=== PATIENT | female | born 1940 | race Caucasian/White ===

== ENCOUNTER 2017-04-22 11:13 | Inpatient (IN) ==
[2017-04-22] MEDS ORDERED: NS 1,000 ML IV ONE ×2 (12:01→12:41)
[2017-04-22] MEDS ORDERED: DUONEB (A & A) INH ONE (12:04)
--- NOTE | 2017-04-22 12:05 | Diag Imaging Result Doc PS360 ---
EXAM: CHEST-PORTABLE HISTORY: cough/recent pneumonia TECHNIQUE: AP portable upright at 1144 COMMENT: The inspiration is much better than on 08/05/2015. There is no evidence of acute cardiac or pulmonary disease. There are some calcifications in the left upper lobe and hilum consistent with granulomatous changes. IMPRESSION: No acute disease. Electronically signed by Anthony Contreras 04/22/2017 12:03 PM
[2017-04-22 12:08] LABS: BASO% 0.4 % (0.0-0.8); EOS# 0.03 X1000 (0.0-0.7); EOS% 0.2 % (0.0-10.0); HEMATOCRIT 29.1 % (37.0-47.0); HEMOGLOBIN 9.4 g/dL (12.0-16.0); IMM GRAN# 0.27 X1000 (0.0-0.04); IMM GRAN% 1.7 % (0.0-0.5); LYMPH# 1.81 X1000 (1.2-3.4); LYMPH% 11.2 % (20.5-51.1); MANUAL DIFF NEEDED? NO; MCH 31.6 PG (27-31); MCHC 32.3 g/dL (33-37); MONO# 1.46 X1000 (0.11-0.59); MONO% 9.1 % (1.7-9.3); MPV 11.7 FL (7.4-10.4); NEUT% 77.4 % (42.2-75.2); PLT 123 X1000 (130-400); RBC 2.97 XMIL (4.2-5.4)
[2017-04-22 12:18] LABS: INR 1.15; PROTIME 12.2 Seconds (9.2-11.7); PTT 31.5 Seconds (22.0-36.0)
[2017-04-22 12:29] LABS: ALBUMIN 3.9 g/dL (3.5-5.0); POTASSIUM 5.1 mmol/L (3.5-5.1); TOTAL BILIRUBIN 0.31 mg/dL (0.20-1.00); TOTAL PROTEIN 7.2 g/dL (6.3-8.3)
[2017-04-22] MEDS ORDERED: LEVAQUIN 750 MG/D5W 750 MG/150 ML IVPB IV ONE (12:39)
[2017-04-22 12:50] LABS: CALCIUM 7.1 mg/dL (8.8-10.2); CK-MB 6.41 ng/mL (0.0-5.0)
--- NOTE | 2017-04-22 13:09 | PROVIDER DOCUMENTATION ---
This chart was entered by Juan Alegria Scribe, acting as scribe for Mamie Lucio MD. HPI-General Adult - General Chief Complaint: Shortness of Breath Stated Complaint: pneumonia sx worsening Time Seen by Provider: 04/22/17 11:46 Source: patient, family Allergies/Adverse Reactions: Patient Allergies Allergy/AdvReac Type Severity Reaction Status Date / Time indomethacin [From Indocin] Allergy Severe NAUSEA/VOMI Verified 04/22/17 12:01 TING indomethacin sodium * Allergy Severe NAUSEA/VOMI Verified 04/22/17 12:01 [From Indocin] TING Home Medications: Home Medication List Medication Instructions Recorded Confirmed Last Taken Type Allopurinol 300 mg PO DAILY 06/25/15 04/22/17 04/22/17 History Ferrous Sulfate 325 mg PO DAILY 06/25/15 04/22/17 04/22/17 History Furosemide [Lasix] 40 mg PO DAILY 06/25/15 04/22/17 04/22/17 History Levothyroxine [Synthroid] 100 microgm PO DAILY 06/25/15 04/22/17 04/22/17 History Lovastatin 40 mg PO DAILY 06/25/15 04/22/17 04/22/17 History Omeprazole [Prilosec] 40 mg PO DAILY 06/25/15 04/22/17 04/22/17 History Buspirone [Buspar] 10 mg PO DAILY 04/22/17 04/22/17 04/22/17 History Iron Fum,Ps/FA/Vit B with C #9 1 each PO DAILY 04/22/17 04/22/17 04/22/17 History [Folivane-Plus Capsule] Levofloxacin [Levofloxacin] 250 mg PO BID 04/22/17 04/22/17 04/22/17 History Lisinopril [Lisinopril] 40 mg PO DAILY 04/22/17 04/22/17 04/22/17 History Megestrol Acetate 40 mg PO DAILY 04/22/17 04/22/17 04/22/17 History Potassium Chloride E.r. [Klor-Con] 10 meq PO DAILY 04/22/17 04/22/17 04/22/17 History Ropinirole [Requip] 0.5 mg PO DAILY 04/22/17 04/22/17 04/22/17 History Sitagliptin [Januvia] 100 mg PO DAILY 04/22/17 04/22/17 04/22/17 History Terazosin HCl 1 mg PO DAILY 04/22/17 04/22/17 04/22/17 History - History of Present Illness -Gen Adult Nature of Presenting Problems: 76 yo F presents to the ER with complaint of SOB and hypoxia. PT was recently dx with pneumonia and states she is not getting any better. PT has a productive cough. Associated Symptoms: reports: cough, shortness of breath Review of Systems - Adult - REVIEW OF SYSTEMS - ADULT Constitutional: denies: chills, fever Cardiovascular: denies: chest pain, palpitations Respiratory: reports: see HPI, cough, shortness of breath Gastrointestinal: denies: abdominal pain, nausea, vomiting All Other Systems: Reviewed and Negative Past History - Adult - PAST MEDICAL HISTORY-ADULT Review of Records: reports: Old Records Reviewed, Nursing Assessment Review, Medications Reviewed, Social history reviewed & non-contributory. Major Childhood Illnesses: reports: denies history Cardiovascular: reports: HTN, hyperlipidemia Respiratory: reports: denies history Gastrointestinal: reports: denies history Obstetrical/Gynecological: reports: denies history Genitourinary: reports: denies history Musculoskeletal: reports: denies history Neurological: reports: denies history Endocrine/Immune: reports: Diabetes Other Conditions: reports: denies history - PRIOR SURGERIES/PROCEDURES Surgical/Procedure History: reports: hysterectomy, appendectomy, cholecystectomy - IMMUNIZATION STATUS Childhood Immunizations: See Nurse Assessment Flu Vaccine: See Nurse Assessment Physical Exam-General - PHYSICAL EXAM-ADULT Initial Vital Signs Reviewed: Yes - CONSTITUTIONAL General Appearance: alert, moderate distress - RESPIRATORY Respiratory: chest non-tender, no accessory muscle use, wheezing - CARDIOVASCULAR Cardiovascular: normal peripheral pulses, tachycardia - GASTROINTESTINAL (ABDOMEN) Abdominal Exam: normal bowel sounds, soft - SKIN Integumentary: normal color, normal turgor, warm/dry Progress - PLAN OF CARE/RESULTS Progress/Plan/Lab Results: Vital Signs - 8 hr 04/22/17 11:18 Temperature 98.3 F Pulse Rate 157 H Respiratory Rate 32 H Blood Pressure 144/75 O2 Sat by Pulse Oximetry 100 Orders Category Date Time Status Cardiac Monitoring DIRECTED Care 04/22/17 11:25 Active IV Insertion ORDERED Care 04/22/17 11:25 Completed Notify MD of + Sepsis Screen NOW Care 04/22/17 11:25 Active CHEST-PORTABLE [RAD] Stat Exams 04/22/17 11:25 Taken BLOOD CULTURE [BLDCUL] Stat Lab 04/22/17 11:49 Ordered CBC WITH DIFF [HEME] Stat Lab 04/22/17 11:49 Ordered CK PROFILE [SP CHEM] Stat Lab 04/22/17 11:49 Ordered COMPREHENSIVE METABOLIC PANEL [CHEM] Stat Lab 04/22/17 11:49 Ordered LACTATE, PLASMA [CHEM] Stat Lab 04/22/17 11:49 Ordered PROTIME WITH INR [COAG] Stat Lab 04/22/17 11:49 Ordered PTT [COAG] Stat Lab 04/22/17 11:49 Ordered ROUTINE CULTURE [RM] Stat Lab 04/22/17 11:25 Uncollected TROPONIN T Stat Lab 04/22/17 11:49 Ordered URINALYSIS W/POSS RFLX CULT-1 [URINALYSIS] Stat Lab 04/22/17 11:25 Uncollected Oxygen Device Stat Oth 04/22/17 11:25 Active Result Diagrams: 04/22/17 11:35 04/22/17 11:35 - EKG 1 Time of EKG reading by physician:: 11:29 EKG Read and Signed by:: Mamie Lucio EKG Interpretation (*Must complete 3 of following elements*): Abnormal Rate: 144 Rhythm: sinus tachycardia [place]: left QRS: normal MD Interval: normal Comments: pulmonary disease pattern - XRAY 1 XRAY Study: Chest Impression: See EMR Report - CONSULTS/PCP/HOSPITALIST Notification #1 *Consult/PCP/Hospitalist*: DR Barrett Time Discussed: 13:07 Consult Disposition: Admit Departure - Departure Date of Disposition Decision: 04/22/17 Time of Disposition Decision: 13:07 DIAGNOSIS: Tachycardia, Hypoxia Pneumonia Qualifiers: Pneumonia type: due to unspecified organism Laterality: unspecified laterality Lung location: unspecified part of lung Qualified Code(s): J18.9 - Pneumonia, unspecified organism Disposition: ADMITTED INPATIENT 09 Certified Medical Emergency: Emergent Condition: Fair Referrals and Follow-Ups: Ace Blount [Primary Care Provider] - - Critical Care Note This patient required my direct & personal management of CC.: No Comments: A 76 y/o F who presented after failed outpt PNA, was tachycardic tachypnic with elevated WBC and lactate started on IVF and given levaquin and admit for further evalaution This chart was documented by the indicated scribe, (Juan Alegria Scribe) and accurately reflects the services I performed and decisions made by me, Mamie Lucio MD, as attested by the provider's signature.
[2017-04-22 13:18] LABS: I-STAT BE -22 mmoll (-2-3); I-STAT GLUCOSE 113 mg/dL (70-105); I-STAT HCO3 4.5 mmoll (22.0-26.0); I-STAT HEMATOCRIT 25 % (38-51); I-STAT HEMOGLOBIN 8.5 g/dL (11.5-17.5); I-STAT IONIZED CALCIUM 1.01 mmoll (1.12-1.32); I-STAT K 5.4 mmoll (3.5-4.9); I-STAT SO2 99 % (95-98); I-STAT SODIUM 143 mmoll (138-146); I-STAT pH 7.277 (7.350-7.450)
[2017-04-22 13:19] LABS: I-STAT PCO2 9.6 mmHg (35.0-45.0); I-STAT TCO2 < 5 mmoll (23-27)
[2017-04-22] MEDS ORDERED: SODIUM BICARBONATE 8.4% IV ONE (13:34)
[2017-04-22] MEDS ORDERED: SODIUM BICARBONATE 8.4% IV PUSH ONE (13:36)
[2017-04-22] MEDS ORDERED: MERREM 500 MG in NS 50 ML IV SCH (13:45)
--- NOTE | 2017-04-22 14:17 | Diag Imaging Result Doc PS360 ---
EXAM: US RENAL 2 (RETROPER) COMPLETE HISTORY: messi on ckd TECHNIQUE: Transabdominal COMMENT: There is no evidence of hydronephrosis or mass. The right kidney is 8.3 x 3.6 x 3.9 cm the left is 8.4 x 3.6 x 4.4 cm. The bladder is unremarkable in appearance. The appearance of the kidneys has not changed significantly since 08/06/2015. IMPRESSION: No evidence of obstructive uropathy. Electronically signed by Anthony Contreras 04/22/2017 2:15 PM
[2017-04-22] MEDS: SODIUM BICARBONATE 8.4% 150 MEQ in D5W 1,000 ML IV SCH ×2 (14:35→23:28)
--- NOTE | 2017-04-22 15:08 | Diag Imaging Result Doc PS360 ---
EXAM: THORAX/ABDOMEN/PELVIS W/O CONT INDICATION: fever/leukocytosis COMPARISON: Abdominal CT dated 05/28/[address] chest dated 07/22/2015 FINDINGS: CHEST: There is excessive motion artifact, which limits detail at the lung bases. There is a calcified granuloma in the left upper lobe. There is suggestion of atelectasis versus mild scarring at the lung bases. The lungs are grossly clear, otherwise, given limitations due to motion artifact. There are calcified mediastinal and left hilar lymph nodes indicating prior granulomatous disease. There is no evidence of significant lymphadenopathy, otherwise. ABDOMEN/PELVIS: Excessive motion artifact limits fine details, especially at the mid and upper abdomen. There are calcified granulomata in the liver and the spleen. There has been a previous cholecystectomy. There is a prominent low dense mass measuring up to 2.5 cm axially involving the right adrenal gland is approximately stable accounting for motion artifact. Its density is compatible with a prominent adenoma. There is no evidence of hydronephrosis. The urinary bladder is grossly unremarkable. There is advanced sigmoid diverticulosis coli but there is no evidence of diverticulitis. There has been a previous hysterectomy. There is no evidence of bowel obstruction. No focal inflammatory changes, free abdominal gas, or free fluid is appreciated. There is patchy aortic atherosclerotic calcification. There is no evidence of aortic aneurysm. There is opacification at the left inguinal region that is stable, perhaps due to prior hernia repair. The remainder of the solid viscera of the abdomen and pelvis and the remainder of the GI tract are essentially unremarkable. IMPRESSION: 1.Excessive motion artifact somewhat limits detail on both the chest and abdominal portions of the scan. 2.Subsegmental atelectasis versus scarring at the lower lung zones. 3.Extensive uncomplicated diverticulosis coli. 4.Other incidental/nonacute findings detailed above but no definite acute pathology. Electronically signed by August Rodriguez 04/22/2017 3:05 PM
[2017-04-22] MEDS ORDERED: VANCOMYCIN IV PER PHARMACY MISC SCH (15:15)
[2017-04-22 15:24] LABS: URINE CULTURE NEEDED? NO; URINE MICRO REVIEW NEEDED? NO; URINE SOURCE CATH
[2017-04-22 15:29] LABS: BILIRUBIN URINE NEGATIVE (NEGATIVE); BLOOD URINE NEGATIVE (NEGATIVE); COLOR YELLOW; GLUCOSE URINE NEGATIVE (NEGATIVE); LEUKOCYTES URINE NEGATIVE (NEGATIVE); NITRITE URINE NEGATIVE (NEGATIVE); PROTEIN URINE TRACE mg/dL (NEGATIVE); SP GRAVITY URINE 1.016; TURBIDITY URINE CLEAR (CLEAR); UR EPITHELIAL CELLS <10 /HPF (<10); URINE BACTERIA NEGATIVE /HPF; URINE RBC <10 /HPF (<10); URINE WBC <10 /HPF (<10); UROBILINOGEN URINE NORMAL (NORMAL)
[2017-04-22] MEDS: XOPENEX NEB INH SCH ×3 (15:46→23:28)
[2017-04-22 15:48] LABS: UR CREAT RANDOM 151.8 mg/dL (11-20); UR PROT RANDOM 19.7 mg/dL
[2017-04-22 15:49] LABS: UR AMPHETAMINES QUAL NONE DETECTED (NONE DETECT); UR BARBITUATES QUAL NONE DETECTED (NONE DETECT); UR BENZODIAZEPIN QUAL NONE DETECTED (NONE DETECT); UR CANNABINOIDS QUAL NONE DETECTED (NONE DETECT); UR COCAINE QUAL NONE DETECTED (NONE DETECT); UR METHADONE QUAL NONE DETECTED (NONE DETECT); UR OPIATES QUAL NONE DETECTED (NONE DETECT); UR OXYCODONE QUAL NONE DETECTED (NONE DETECT); UR PCP QUAL NONE DETECTED (NONE DETECT)
[2017-04-22 16:40] LABS: RETIC% 1.32 % (0.8-2.1); RETIC-HE 30.3 PG (28.2-36.6)
[2017-04-22 16:49] LABS: IRON SATURATION 20 %; TIBC 170 ug/dL; TOTAL IRON 34 ug/dL (49-151); UNBOUND IRON 136 ug/dL (112-346)
[2017-04-22] MEDS ORDERED: VANCOMYCIN 1,400 MG in NS 250 ML IV ONE (17:00)
[2017-04-22] MEDS: HUMULIN R SUBQ SCH ×2 (17:07→20:20)
[2017-04-22 17:22] LABS: CK INDEX 3.3 (0.0-2.5); CK-MB 7.3 ng/mL (0.0-5.0)
[2017-04-22 17:50] LABS: FREE T4 1.34 ng/dL (0.93-1.70)
[2017-04-22 18:01] LABS: FERRITIN 401 ng/mL (13-150)
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
[2017-04-22] MEDS ORDERED: ZITHROMAX 500 MG/NS 500 MG/250 ML IVPB IV SCH (19:15)
--- NOTE | 2017-04-22 20:01 | Diag Imaging Result Doc PS360 ---
EXAM: SINUSES INDICATION: sinusitis TECHNIQUE: 3 views COMPARISON: None. FINDINGS: There is questionable mild mucosal thickening at the floor of the left maxillary sinus. No well-defined air-fluid levels are appreciated. The paranasal sinuses are grossly clear, otherwise. The surrounding bony structures are grossly intact. IMPRESSION: Questionable mild left maxillary sinus mucosal disease. Electronically signed by August Rodriguez 04/22/2017 7:59 PM
[2017-04-22] MEDS: MAXIPIME 0.5 GM in NS 50 ML IV SCH (20:17)
[2017-04-22] MEDS: HEPARIN SUBQ SCH (20:17)
--- NOTE | 2017-04-22 23:22 | CONSULTATION ---
DATE OF CONSULTATION: 04/22/2017 Please see my addendum. CONCLUSION: Patient is admitted to the hospital with cough, shortness of breath and chills that has been going on for approximately 2 weeks. It is of interest to note that the patient's chest x- ray shows clear lung quintanilla and on CT scan there is atelectasis or scarring but with both of the studies, namely the x-ray and CT scan, no pneumonia was seen. Patient may have a bronchitis. She could have sinusitis with secretions being aspirated into her lungs. Also I think pulmonary emboli are a consideration also. The patient has had pneumonia she said in the past year twice and she has also had sinusitis before. She may have an immunoglobulin deficiency. The patient also is missing most of her teeth and the very few that she has 1 of them has severe caries in it. I think pertussis is a possibility. RECOMMENDATIONS: I have discontinued meropenem and vancomycin. The patient already had a dose of Levaquin today and I have ordered Levaquin to be started tomorrow in a reduced dose because of her renal failure. DISCUSSION: The patient said that she has been coughing and short of breath. She has had chills but no fever for the past 2 weeks. She occasionally produces a white sputum. She has been having pain in her legs but this has been a chronic problem. Her studies thus far show a renal ultrasound showed no obstruction to the kidneys. CT scan of the lungs showed atelectasis and scarring. CT scan of the abdomen showed extensive diverticula. Chest x-ray showed no acute disease. Blood and sputum cultures are pending. Urinalysis showed no white cells or bacteria. Patient's blood gases have a pH of 7.27, a PO2 of 147 and a pCO2 of 9.6. Creatinine is 5.2, the GFR is 8. Liver function studies are normal. CBC shows a white count of 16,100 , hemoglobin 9.4, and platelet count 123,000. PAST MEDICAL HISTORY/REVIEW OF SYSTEMS: Eyes and ears: Denies difficulty hearing or seeing Neck: No stiffness. Respiratory: Before her present illness she had not been complaining of cough or dyspnea or wheezing. Cardiovascular: No chest pain or palpitations. GI: No nausea, vomiting. The patient states that she has had loose stools for at least 10 years. Genitourinary: No dysuria or flank pain. Endocrine: She does not have diabetes, she does have hypothyroidism. Hematologic: She does not have a history of anemia or bleeding tendency. Neurologic: No seizures or motor or sensory loss. Extremities: She does complain of pain in her legs that has been present for years. The remainder of the patient's review of systems was completed and was negative. B[employer] SPECIALIST HISTORY: She is a 3, para 3, AB 0. She has had a hysterectomy. PREVIOUS HOSPITALIZATIONS AND OPERATIONS: She has had labor and deliveries, a hysterectomy, 1 knee underwent replacement and the other knee just had arthroscopic surgery. She has also had cholecystectomy. MEDICAL DISEASES: Positive for diabetes mellitus and hypertension. INFECTIOUS DISEASE HISTORY: For pneumonia, UTI and sinusitis. FAMILY HISTORY: Positive for diabetes mellitus, hypertension, and myocardial infarction. SOCIAL HISTORY[place] . She has a dog as a pet. The patient does not smoke or drink alcoholic beverages or abuse drugs. ALLERGIES: She has allergies to indomethacin. HOME MEDICATIONS: Include at home she apparently was started on Levaquin, she has Januvia, potassium, Prilosec, lovastatin, Synthroid, Lasix, ferrous sulfate, allopurinol , iron, terazosin, megestrol, lisinopril, Requip and BuSpar. PHYSICAL EXAMINATION: Vital signs: Temperature is 98.8 degrees, pulse 131, respirations 35, blood pressure 103/86. Her weight is listed as 140 pounds. General: This is an ill-appearing, elderly female who coughed frequently during the exam but did not bring up any sputum. Head, eyes, ears, nose, and throat: She can hear my spoken words and see near objects. She is missing most of her teeth and she only has a few 1 of which has a lot of caries in it. Neck: No meningismus. Thorax: No increased AP diameter. Lungs: Clear to auscultation. Cardiovascular: Heart rate was regular. Peripheral pulses are palpable. Abdomen: Soft and nontender. Neurologic: Patient is alert. She can move her extremities. There is no tremor. Her sensation is intact to touch. Integument: No rash noted. Thank you for the consult. cc: MD BURTON Guillermo
[2017-04-23 00:10] LABS: CK-MB 7.75 ng/mL (0.0-5.0)
[2017-04-23] MEDS: XOPENEX NEB INH SCH ×6 (03:22→23:13)
--- NOTE | 2017-04-23 03:37 | CONSULTATION ---
DATE OF CONSULTATION: 04/22/2017 ADDENDUM: The patient tells me now that she has been on antibiotics for 2 weeks and 1 of them she thinks was Levaquin. Therefore I have discontinued Levaquin and put the patient on a combination of cefepime the dose of which is modified because of the patient's renal failure and azithromycin. I think that the fact that the patient is having so much coughing brings up the possibility of pertussis and I have ordered pertussis by PCR. cc: Hector Mora MD
[2017-04-23 04:23] LABS: ALLEN TEST YES; BE -6.7 mmoll (-3.0-3.0); BLOOD TYPE ARTERIAL; DRAW SITE R RADIAL; METHB 1.5 % (0.0-1.5); O2(CT) 11.2 mL/dL (15.0-23.0); PO2(98.6) 161 mmHg (60-100); SAMPLE BLOOD; SAO2 98.4 % (95.0-100.0); pH(98.6) 7.51 (7.35-7.45)
[2017-04-23 04:24] LABS: MODALITY CANNULA; PCO2(98.6) 19 mmHg (35-45)
[2017-04-23] MEDS ORDERED: ATIVAN IV ONE (04:55)
[2017-04-23] MEDS: PROTONIX IV SCH (06:10)
[2017-04-23] MEDS: HUMULIN R SUBQ SCH ×6 (06:11→21:50)
[2017-04-23 06:55] LABS: HEMOGLOBIN A1C 6.4 % (4.8-6.0)
[2017-04-23 07:09] LABS: BASO% 0.1 % (0.0-0.8); EOS% 0.7 % (0.0-10.0); HEMATOCRIT 22.8 % (37.0-47.0); HEMOGLOBIN 7.4 g/dL (12.0-16.0); LYMPH# 1.65 X1000 (1.2-3.4); LYMPH% 12.2 % (20.5-51.1); MANUAL DIFF NEEDED? YES; MCH 31.9 PG (27-31); MCHC 32.5 g/dL (33-37); MCV 98.3 FL (81-99); MONO# 1.17 X1000 (0.11-0.59); MONO% 8.6 % (1.7-9.3); MPV 12.7 FL (7.4-10.4); NEUT% 78.4 % (42.2-75.2); PLT 107 X1000 (130-400); RBC 2.32 XMIL (4.2-5.4)
[2017-04-23 07:21] LABS: CALCIUM 5.7 mg/dL (8.8-10.2)
[2017-04-23 07:22] LABS: ALBUMIN 2.8 g/dL (3.5-5.0); POTASSIUM 3.8 mmol/L (3.5-5.1)
[2017-04-23 07:59] LABS: BANDS 2 % (0-1); BASO 2 % (0-1); LYMPHS 16 % (21-51); MONO 2 % (1-9)
[2017-04-23] MEDS ORDERED: CALCIUM GLUCONATE 1 GM in NS 50 ML IV ONE (08:00)
--- NOTE | 2017-04-23 09:47 | Diag Imaging Result Doc PS360 ---
EXAM: LUNG SCAN / VQ INDICATION: pulmonary emboli TECHNIQUE: 20.3 mCi of aerosolized technetium 99 DTPA was administered for the ventilation portion of the scan. 5.3 mCi of IV technetium 99 MAA was administered for the perfusion portion of the scan. COMPARISON: None. FINDINGS: There is a vague wedge-shaped defect involving the right lung on the perfusion images. There is no definite matching ventilation defect. It is best seen on the RPO projection and the MONGOLIAN projection. This is probably in the posterior segment and possibly the anterior segment of the right upper lobe. No other discrete perfusion defects are identified. IMPRESSION: Unmatched segmental perfusion defect in the right lung as described indicating a high probability of pulmonary embolism. Electronically signed by August Rodriguez 04/23/2017 9:45 AM
[2017-04-23] MEDS: MAXIPIME 0.5 GM in NS 50 ML IV SCH (09:55)
[2017-04-23] MEDS: HEPARIN SUBQ SCH (09:56)
--- NOTE | 2017-04-23 10:25 | CONSULTATION ---
DATE OF CONSULTATION: 04/23/2017 REASON FOR CONSULTATION: Acute kidney injury. HISTORY OF PRESENT ILLNESS: Ms. Nunez is a 76-year-old white female who was recently hospitalized in [place] with pneumonia. She was discharged on Levaquin. She has been having persistent diarrhea since that time, as well as severe coughing and sputum production, chills, diaphoresis, fever, etc. Very poor p.o. intake. No blood in her diarrhea. No abdominal pain particularly. Because of her severe and ongoing illness, she came to the emergency room at [facility] where she was noted to be markedly tachypneic and tachycardic. She was not hypotensive, however. Her initial laboratory data disclosed marked metabolic acidosis with modest anion gap elevation. Appropriate respiratory compensation. Because of these findings, she was admitted to the intensive care unit and treated with IV bicarbonate drip. Her urine output has been acceptable and her shortness of breath is somewhat better today. Still coughing. PAST MEDICAL HISTORY: As above. She also has diabetes, reflux, hypertension, hyperlipidemia, restless legs syndrome. Chart also relates a history of chronic kidney disease, though her most recent creatinine was 0.8 in 2015 in our system. HOME MEDICATIONS: Allopurinol, BuSpar, iron, Levaquin, Synthroid, lisinopril, lovastatin, Megace, Prilosec, Klor-Con, Requip, Januvia, terazosin. ALLERGIES: Indomethacin. SOCIAL HISTORY: No alcohol or tobacco. She is and lives with her . FAMILY HISTORY: Noncontributory. REVIEW OF SYSTEMS: Otherwise noncontributory. PHYSICAL EXAMINATION: Vital Signs: Blood pressure 119/77, heart rate 108, respirations 26, afebrile. General: She is an elderly woman, in modest distress with increased work of breathing. Skin: Warm and dry. HEENT: Conjunctivae are pink. Pupils are equal. Oropharynx is dry. Tongue is otherwise normal. Neck: Supple. Neck veins are not visible. Trachea is midline. Heart: Regular and tachycardic with a gallop. Lungs: Have equal breath sounds. Tachypneic. No crackles or wheezes. Abdomen: Soft, nontender. Bowel sounds are present. Extremities: Have no edema, clubbing, or cyanosis. Neurologic Exam: Grossly nonfocal. LABORATORY DATA: Sodium 141, potassium 5.1, chloride 112, bicarbonate 7, BUN 87, creatinine 5.2. PH 7.51, pCO2 19, PO2 161. Hemoglobin 7.4. IMPRESSIONS: 1. Acute kidney injury. Most likely intravascular volume depletion in the context of an HEATHER inhibitor. Labs are responding to simple IV fluid resuscitation and withholding her HEATHER inhibitor. We will complete our evaluation with urine electrolytes, etc. She had imaging of the abdomen which did not note any renal pathology. 2. Metabolic acidosis. Multifactorial from renal failure and severe ongoing diarrhea. She has both anion gap and non-gap components. She is on IV bicarbonate drip which we will continue as ordered. Her acid-base status is improving and her pH is actually above normal. She has developed hypernatremia so we will adjust her IV fluid constitution and continue aggressive fluid resuscitation. cc: Sudarshan Huynh MD
[2017-04-23] MEDS: LOVENOX SUBQ SCH (10:57)
[2017-04-23] MEDS: SODIUM BICARBONATE 8.4% 50 MEQ in D5 1/2 NS 1,000 ML IV SCH ×2 (10:57→20:02)
[2017-04-23] MEDS ORDERED: NS 250 ML ONE (11:02)
[2017-04-23 11:04] LABS: INR 1.27; PROTIME 13.5 Seconds (9.2-11.7)
--- NOTE | 2017-04-23 12:50 | ECHO REPORT ---
ORDER DATE: 04/22/2017 MEASUREMENTS: 1. Left ventricular end-diastolic diameter 4.2. 2. End systolic diameter 2.6. 3. Posterior wall thickness 1.0. 4. Septal thickness 1.0. 5. Left atrium 3.6. 6. Aortic root 3.8. SUMMARY OF 2-DIMENSIONAL IMAGIN. Technically difficult study. 2. Trileaflet aortic valve is sclerotic and has mildly reduced opening on 2-dimensional images. Peak gradient across the valve is 24 mmHg with a mean gradient of 14 mmHg. Those are consistent with mild aortic stenosis. Mitral, tricuspid, and pulmonic valves are without structural abnormality with mild mitral regurgitation, mild tricuspid regurgitation, and mild pulmonic insufficiency. The estimated systolic PA pressure by Doppler is 35 to 40 mmHg. Aortic root is in normal size. 3. Normal left ventricular dimensions suggested. Estimated left ventricular ejection fraction appears to be at least 70%. No regional wall motion abnormality can be appreciated. Left atrium, right atrium, and right ventricle are normal in size with normal right ventricular systolic function. 4. No pericardial effusion. 5. Appearance of inferior vena cava suggests normal central venous pressure. CONCLUSIONS: 1. Technically difficult study. 2. Mild aortic stenosis. 3. Mild mitral regurgitation. 4. Mild tricuspid regurgitation with estimated systolic PA pressure 35-40 mmHg. 5. Estimated left ventricular ejection fraction at least 70%. cc: MD Analilia Galdamez MD
[2017-04-23] MEDS ORDERED: LEVAQUIN 250 MG/D5W 250 MG/50 ML IVPB IV SCH (14:00)
[2017-04-23] MEDS: ZOFRAN IV PRN (14:26)
--- NOTE | 2017-04-23 15:14 | Diag Imaging Result Doc PS360 ---
EXAM: BA SWALLOW W/VIDEO SPEECH THER HISTORY: aspiration TECHNIQUE: Multiple consistencies of barium were swallowed in the lateral projection COMMENT: There is no evidence of aspiration. There is some evidence of presbyesophagus with tertiary contractions in the distal esophagus. IMPRESSION: Presbyesophagus. No evidence of aspiration. Electronically signed by Anthony Contreras 04/23/2017 3:11 PM
--- NOTE | 2017-04-23 15:20 | Diag Imaging Result Doc PS360 ---
EXAM: ABDOMEN FLAT/UPRIGHT HISTORY: nausea/vomiting TECHNIQUE: Three views COMMENT: There is retained contrast material in the stomach and proximal small bowel. There is some gaseous dilatation of distal small bowel loops. There is also some gas present in the hepatic flexure of the colon. There is gas in the rectum. There is a diverticulum in the proximal jejunum. IMPRESSION: The possibility of partial distal small bowel obstruction cannot be excluded. Otherwise nonspecific abdomen. Electronically signed by Anthony Contreras 04/23/2017 3:17 PM
--- NOTE | 2017-04-23 17:56 | PROGRESS NOTE ---
DATE: 04/23/2017 SUBJECTIVE: The patient states that she feels a lot better today. She is still having coughing spells. OBJECTIVE: Vital Signs: Temperature 98.4 degrees, blood pressure 142/76, heart rate 111, respirations 24, O2 saturations 94% on 2 L nasal cannula. General: This is a chronically ill- appearing, elderly female, lying in bed, in no acute distress. Head: Normocephalic, atraumatic. Heart: S1, S2. Normal. Tachycardic. Lungs: Equal air entry bilaterally. No crackles. No rales. Abdomen: Hypoactive bowel sounds. Soft, nontender, nondistended. Extremities: No edema. No cyanosis. No calf tenderness. Neurologic: The patient is alert and oriented x3. LABS: White blood cell count 13, hemoglobin 7.4, hematocrit 22, platelets 107, 000. Sodium 149, potassium 3.8, chloride 115, CO2 13, BUN 65, creatinine 4.1, glucose 117, calcium 5.7, phosphorus 2.1. IMAGING: Abdominal x-ray: Partial distal small bowel obstruction. Lung V/Q scan reveals high probability for PE. ASSESSMENT AND PLAN: 1. Acute pulmonary embolism. We will start the patient on renally dosed Lovenox. 2. Acute left lower extremity deep vein thrombosis. The patient will be started on Lovenox. 3. Acute kidney injury. This appears to be improving with IV fluid hydration. Further management as per the import manager. 4. Metabolic acidosis. Improving. Continue on the bicarb drip. 5. Suspected partial small bowel obstruction. We will have an NG tube placed to low intermittent suction and repeat the abdominal x-ray in the morning. The patient will remain n.p.o. 6. Possible aspiration pneumonia. Continue on the current IV antibiotic regimen as directed by Dr. Mora. 7. Leukocytosis. Improving. Continue on IV antibiotic therapy. 8. Thrombocytopenia. We will continue to monitor this closely. The patient is however on Lovenox for deep venous thrombosis. If the platelet count continues to drop , may need to consult Hematology. 9. Diabetes mellitus type 2. Continue on sliding scale insulin. 10. Hypocalcemia. Will give the patient a dose of calcium gluconate. 11. Hypernatremia. The patient's fluids have been changed by the import manager to D5 half normal saline. We will continue to monitor this closely. 12. The plan of care was discussed with the patient and her family at the bedside. cc: Analilia Barrett MD MTDD
--- NOTE | 2017-04-23 18:27 | Diag Imaging Result Doc PS360 ---
EXAM: CHEST/ABD TUBE PLACEMENT HISTORY: NG tube placement confirmation TECHNIQUE: AP portable upright at 1810 COMMENT: The NG tube tip is in the left upper quadrant presumably in the body of the stomach. There is less gaseous dilatation of small bowel loops. IMPRESSION: NG tube in the stomach. Electronically signed by Anthony Contreras 04/23/2017 6:24 PM
[2017-04-23] MEDS: ATIVAN IV PRN (21:19)
[2017-04-24] MEDS: XOPENEX NEB INH SCH ×6 (03:17→22:39)
[2017-04-24 04:35] LABS: ALLEN TEST YES; BE -0.6 mmoll (-3.0-3.0); BLOOD TYPE ARTERIAL; DRAW SITE R RADIAL; METHB 1.4 % (0.0-1.5); O2(CT) 5.9 mL/dL (15.0-23.0); PCO2(98.6) 30 mmHg (35-45); PO2(98.6) 84 mmHg (60-100); SAMPLE BLOOD; SAO2 97.7 % (95.0-100.0); THB 4.2 g/dL (11.5-17.4); pH(98.6) 7.49 (7.35-7.45)
[2017-04-24 04:36] LABS: MODALITY CANNULA
[2017-04-24 05:27] LABS: MANUAL DIFF NEEDED? NO
[2017-04-24] MEDS: SODIUM BICARBONATE 8.4% 50 MEQ in D5 1/2 NS 1,000 ML IV SCH (05:31)
[2017-04-24 06:00] LABS: BASO% 0.5 % (0.0-0.8); EOS# 0.09 X1000 (0.0-0.7); EOS% 0.6 % (0.0-10.0); HEMATOCRIT 21.2 % (37.0-47.0); HEMOGLOBIN 6.9 g/dL (12.0-16.0); IMM GRAN# 0.21 X1000 (0.0-0.04); IMM GRAN% 1.4 % (0.0-0.5); LYMPH# 2.49 X1000 (1.2-3.4); LYMPH% 16.9 % (20.5-51.1); MCH 31.2 PG (27-31); MCHC 32.5 g/dL (33-37); MCV 95.9 FL (81-99); MONO# 1.11 X1000 (0.11-0.59); MONO% 7.6 % (1.7-9.3); MPV 11.9 FL (7.4-10.4); PLT 103 X1000 (130-400); RBC 2.21 XMIL (4.2-5.4)
[2017-04-24] MEDS: HUMULIN R SUBQ SCH ×3 (06:06→16:31)
[2017-04-24] MEDS: SODIUM CHLORIDE 0.9% INJ SCH (06:07)
[2017-04-24] MEDS: PROTONIX IV SCH (06:07)
[2017-04-24 06:20] LABS: ALBUMIN 2.5 g/dL (3.5-5.0); POTASSIUM 3.5 mmol/L (3.5-5.1)
[2017-04-24] MEDS ORDERED: CALCIUM GLUCONATE 2 GM in NS 100 ML IV ONE (07:30)
--- NOTE | 2017-04-24 07:42 | Diag Imaging Result Doc PS360 ---
EXAM: CHEST-PORTABLE INDICATION: dyspnea TECHNIQUE: One view COMPARISON: 04/23/2017 and 04/22/2017 FINDINGS: A right PICC line is in stable position. An NG tube is stable. There appears to be mild subsegmental atelectasis at the left lung base. Otherwise, no new consolidations appreciated. Cardiac silhouette is stable. IMPRESSION: Mild left basilar subsegmental atelectasis. Otherwise, stable chest. Electronically signed by August Rodriguez 04/24/2017 7:39 AM
[2017-04-24] MEDS: LOVENOX SUBQ SCH (08:15)
[2017-04-24] MEDS: ZOSYN 2.25 GM/NS 2.25 GM/50 ML IVPB IV SCH ×2 (08:34→16:30)
[2017-04-24] MEDS: ATIVAN IV PRN (08:34)
[2017-04-24] MEDS: SODIUM BICARBONATE PO SCH ×3 (08:35→20:56)
--- NOTE | 2017-04-24 09:14 | Diag Imaging Result Doc PS360 ---
EXAM: ABDOMEN FLAT/UPRIGHT INDICATION: obstruction TECHNIQUE: 3 views COMPARISON: 04/23/2017 FINDINGS: There is still small amount of residual contrast media in the colon. There is a fairly small amount of small bowel gas. It appears to be less than the previous study. There is no high-grade obstructive bowel pattern. There is no evidence of large volume free abdominal gas. Otherwise, the abdomen is essentially stable. IMPRESSION: Mild patchy small bowel gas that appears to have decreased during the interval. Electronically signed by August Rodriguez 04/24/2017 9:11 AM
--- NOTE | 2017-04-24 09:38 | PROGRESS NOTE ---
DATE: 04/24/2017 TIME SEEN: 0755. SUBJECTIVE: Ms. Nunez is resting quietly in bed. She remains on oxygen support. She states that she is feeling a little bit better. She has an NG tube to low intermittent suction. OBJECTIVE: Her most recent vital signs: Her temperature is 98.6 degrees, blood pressure 142/72, heart rate 105, respirations 34. She remains on 2 L nasal cannula. Last recorded saturation 95%. She has had 3105 In. She has had 985 out with NG tube to low intermittent suction. LABORATORY DATA: Sodium 150, potassium 3.5, chloride 114, CO2 of 20. BUN 47, creatinine 2.9, glucose 124. Anion gap is 16, calcium 5, phosphorus 2.3. Albumin 2.5. White count 14.7, hemoglobin 6.9, hematocrit 21.2 with a platelet count of 103,000. Her ABGs this a.m.: pH 7.49, CO2 of 30, PO2 of 84, bicarbonate 24.5. This is on 2 L nasal cannula 28%. She has a lactate of 1.4. Sputum culture is positive for gram-negative rods. Patient has a PT of 13.5 with an INR of 1.27. PHYSICAL EXAMINATION: This is a 76-year-old white female. She is resting quietly in bed. She appears in no acute distress. Her skin is warm and dry. HEENT: Normocephalic, atraumatic. Conjunctivae pale. She has EMMA. Mucous membranes are moist. Neck is supple. Trachea in midline. No JVD. Cardiovascular: Regular rate and rhythm. She is without murmur or gallop. She remains tachycardic on the monitor. Lungs: She has diminished air entry. She has diminished breath sounds to the posterior bases. She remains on O2. Equal excursion. Abdomen: Hypoactive bowel sounds. Soft, nontender, positive tenderness to the right upper quadrant. Extremities: No edema present. No clubbing or cyanosis. No calf tenderness is present. Neurologic: She is alert and oriented x3. ASSESSMENT AND PLAN: 1. Acute kidney injury on chronic kidney disease. It was indicated earlier that this is more than likely related to intravascular volume depletion in the context of receiving an HEATHER inhibitor. Patient has had IV fluids infusing. Her creatinine has improved over the last 2 days. She is now down to 2.9 with a BUN of 47. We agree with continuing her IV fluids at 125 mL an hour. 2. Electrolytes. She has mild hypokalemia and hypernatremia. We will take her sodium bicarbonate out of her D5 half-normal. We will change her IV fluids to D5 W to infuse at 125 mL an hour. 3. Acid-base balance. This has corrected. She is up to 20. We will place sodium bicarbonate p.o. in to her NG tube and clamp for 1 hour b.i.d. and will re-evaluate labs. 4. Anemia. Patient's hemoglobin has dropped to 6.9. We will defer to the primary care team. 5. Positive pneumonia with positive sputum cultures. Patient is currently on renal dosed antibiotics. 6. Possible small bowel. Dr. Hassan has been consulted. 7. High probability of a pulmonary embolism. Patient remains on heparin followed by primary care team. I would to thank you for allowing us to follow with this patient. Seen, data reviewed, discussed with David Redman on 04/24/17. I agree with the above assessment and plan of care. rg Dictated by EHSAN Ruiz for Sudarshan Huynh MD cc: EHSAN Ruiz MD [facility]
[2017-04-24] MEDS: DILAUDID IV PRN ×2 (10:08→16:43)
[2017-04-24] MEDS ORDERED: TYLENOL PO ONE (11:06)
[2017-04-24] MEDS ORDERED: BENADRYL IV ONE (11:06)
--- NOTE | 2017-04-24 11:14 | CONSULTATION ---
DATE OF CONSULTATION: 04/23/2017 REASON FOR CONSULTATION: Consult concerning small bowel obstruction. REQUESTING PHYSICIAN: Dr. Analilia Barrett. HISTORY OF PRESENT ILLNESS: A 76-year-old female with multiple medical problems who is admitted initially with shortness of breath, chills and malaise. She had been treated recently at another facility for pneumonia. She was admitted and, during the workup, found to have an acute pulmonary embolism. She was started on Lovenox. Also, during the process, she was evaluated and it was thought she had a bowel obstruction. She did have an NG tube that was placed yesterday and appears that her bowel obstruction pattern has improved dramatically. She is denying really any abdominal pain and had bowel movements today and has had essentially only 200 out of her NG tube since it was placed. I was asked to weigh an opinion. Again, her abdominal pain from this morning is improving. PAST MEDICAL HISTORY: 1. Hypothyroidism. 2. Gout. 3. Hypertension. 4. Hyperlipidemia. 5. Gastroesophageal reflux disease. 6. Diabetes. 7. Iron deficiency anemia. 8. Depression. 9. Restless leg syndrome. 10. Chronic kidney disease. 11. Recent pneumonia. 12. Skin cancer. PAST SURGICAL HISTORY: 1. Previous pneumothorax. 2. Hysterectomy. 3. Cholecystectomy. 4. Left knee arthroplasty. 5. Right knee scope. SOCIAL HISTORY: Denies alcohol, tobacco, or illicit drugs. FAMILY HISTORY: Noncontributory but reviewed. REVIEW OF SYSTEMS: A full 10-point review of systems obtained, negative except what is specified in the HPI. ALLERGIES: Indomethacin. HOME MEDICATIONS: Reviewed. Current MAR also reviewed. Of note, patient is on Lovenox. PHYSICAL EXAMINATION: Vital Signs: The patient is currently afebrile with a temperature 99.4 degrees, pulse is mildly tachycardic at 114, respiratory rate mildly tachypneic at 28, blood pressure 130/73. O2 saturation 98% on 2 L nasal cannula. General: No acute distress but agitated female, looks stated age. HEENT: Normocephalic, atraumatic. Pupils equal, round, react to light. Mucous membranes moist. Oropharynx benign. Neck supple. Trachea in midline. Cardiovascular: Mildly tachycardic. Lungs: Grossly clear. Abdomen soft, nontender, nondistended. Extremities: Moves all extremities. Neurologic: Agitated. Skin: No signs of jaundice. Vascular: All extremities perfused. LABORATORY: Laboratory from this morning, white blood cell count is 14, hematocrit is 21.2, platelet count 103,000. Remainder of labs reviewed. IMAGING: Abdominal film from this morning reviewed and noted above. ASSESSMENT AND PLAN: A 76-year-old, female, with multiple medical comorbidities, acute pulmonary embolism, small bowel obstruction. 1. Multiple medical comorbidities currently being managed by the hospitalist service. 2. Acute pulmonary embolism. At this time, she is on Lovenox. Her platelet count has been down somewhat, and they are watching it closely. 3. Small bowel obstruction. At this time, I think it is clinically resolved. I think it was a transient issue. Her NG tube has had minimal output. She is having bowel movements. I will clamp her NG tube and start her on clear liquid diet. I appreciate the consult. I will continue to follow with you. cc: Dagoberto Hassan MD
[2017-04-24] MEDS: VITAMIN B-12 SL SCH (12:00)
--- NOTE | 2017-04-24 12:05 | CONSULTATION ---
DATE OF CONSULTATION: 04/24/2017 REASON FOR CONSULT: She has an acute pulmonary embolism and acute left lower extremity deep venous thrombosis. HISTORY OF PRESENT ILLNESS: This is a patient who we see in our clinic for a benign skull lesion along with iron-deficiency anemia, who has been having some shortness of breath with a productive cough along with some weight loss of about 10 pounds, diarrhea and decreased appetite, for the last 2 weeks. She did go to [facility] 2 weeks ago. They diagnosed her with pneumonia and sent her home on Levaquin. Her symptoms continued to get worse when she was sent home. So she came to the emergency Room on 04/22/2017. Upon admission, she was found to be tachycardic, tachypneic, and her creatinine was 5.2. Her labs also revealed leukocytosis, normocytic anemia and thrombocytopenia. A chest x-ray was obtained which showed no acute process. A CT chest, abdomen and pelvis was obtained which showed some segmental atelectasis versus scarring and uncomplicated diverticulosis. No other acute findings. Patient continued to have some shortness of breath and cough. So, a V/Q lung scan was performed on 04/23/2017 which showed high probability of pulmonary embolism. She has also had lower extremity Dopplers obtained which shows a left lower extremity DVT per the chart. Renal dose Lovenox has been ordered for the patient. She denies any personal or family history of blood clots, recent surgery, inactivity, trauma or lengthy car rides/flights. Iron indices have been obtained. Her iron is 34%, saturation is 20%. Her B12 was 236. The patient's dyspnea is stabilizing, but she has continued to have some abdominal pain. There is some question about a partial small bowel obstruction and an NG tube has been placed. Abdominal x-ray this morning showed mild patchy small bowel gas pattern with no high-grade obstructive bowel pattern seen. She remains on antibiotics per infectious disease and is currently in the ICU for close monitoring. REVIEW OF SYSTEMS: Negative unless indicated in the HPI. ALLERGIES: Indomethacin. Past Medical history: Benign skull lesion, iron deficiency anemia, hypothyroidism, and restless leg syndrome, chronic kidney disease. FAMILY AND SOCIAL HISTORY: Patient denies tobacco, alcohol, or illicit drug use. HOME MEDICATIONS: 1. Allopurinol. 2. Sulfate. 3. Lasix. 4. Icar C. 5. Synthroid. 6. Lisinopril. 7. Megace. 8. Prilosec. 9. Potassium chloride. 10. Requip. 11. Januvia. PHYSICAL EXAMINATION: Vital Signs stable. General: female in no acute distress. HEENT: Head is normocephalic, atraumatic. Pupils equal, round, symmetric. Trachea is midline. Cardiovascular: S1, S2 audible to auscultation with no heaves, lifts, thrills, or murmurs. Pulmonary: Diminished bilateral bases. Normal respiratory effort. Abdomen soft, nondistended. Positive bowel sounds. Musculoskeletal: Moves all extremities. Neurologic:O Alert and oriented x3. Psychiatric: Appropriate to situation. DIAGNOSTIC DATA: CT scan as above. WBC is 14.7, hemoglobin 6.9, hematocrit 21.2, platelet count 103,000. Sodium is 150. Potassium is 3.5. BUN is 47 and creatinine is 2.9. Calcium is 5.0. ASSESSMENT AND PLAN: 1. Acute pulmonary embolism/left lower extremity deep venous thrombosis. Patient is currently on Lovenox. We will obtain a hypercoagulable workup and continue to monitor. The patient denies any recent activity, any recent travel long distance or any trauma to her legs or any recent surgeries. 2. Mqstk-[id number]-[id number] kidney disease. Creatinine is down to 2.[address] Huynh. 3. Electrolyte imbalance. Her calcium and potassium are being replaced. 4. Anemia, likely multifactorial. Give B12 supplementation and will also transfuse 1 unit packed red cells and monitor closely. 5. Possible small bowel obstruction. Dr. Hassan has been consulted. 6. Pneumonia. On antibiotics per Infectious Disease. Dictated by EHSAN Denton for Myron Olvera MD cc: EHSAN Denton MD [facility]
[2017-04-24] MEDS ORDERED: NS 250 ML ONE (13:55)
--- NOTE | 2017-04-24 16:06 | Extremity Venous Study ---
PROCEDURE NAME: Venous U/S Bilateral Legs - 04/23/2017 This is the bilateral lower extremity venous duplex, and color flow imaging study using the [employer] vivid E9 ultrasound system with a 9 L-D transducer. REFERRING PHYSICIAN: Dr. Barrett. 76-year-old female. TITLE ASSISTANT: Keiry Zayas RVT. INDICATIONS: Pulmonary embolism ICD 10 126.99. FINDINGS: Right common femoral vein and its branches, deep and superficial femoral veins were satisfactorily imaged. They had flow through them and were compressible. Right popliteal vein and the deep veins below the right knee were all compressible and had flow through them. The superficial veins of the right lower extremity were compressible throughout their length. The left common femoral vein and its branches, deep and superficial femoral veins were also satisfactorily imaged. They had flow through them and were compressible. The left popliteal vein was compressible throughout its length without evidence of thrombus. The small veins below the left knee including the left posterior tibial vein had acute deep venous thrombosis within it. This clot started in the mid calf and extended distally into the distal calf and involved the posterior tibial vein. It did not propagate more proximally. There was no evidence of superficial venous thrombosis of the left lower extremity. INTERPRETATION: Acute deep venous thrombosis involving the small left posterior tibial vein from mid to distal calf. This clot did not propagate more proximally into the larger veins including the popliteal vein and the veins of the left thigh. There was no evidence of deep or superficial venous thrombosis involving the right lower extremity and there was no evidence of superficial venous thrombosis involving the left lower extremity. cc: MD Analilia Gonzalez MD
[2017-04-24] MEDS: D5W 1,000 ML IV SCH ×2 (16:32)
--- NOTE | 2017-04-24 17:28 | PROGRESS NOTE ---
DATE: 04/24/2017 SUBJECTIVE: The patient is resting comfortably. She has no complaints at this time. She denies having any nausea or vomiting or abdominal pain. OBJECTIVE: Vital Signs: Temperature 99 degrees, blood pressure 149/99, heart rate 102, respiration is 30, O2 saturations 96% on 2 L nasal cannula. General: This is an elderly female, lying in bed, in no acute distress. Head: Normocephalic atraumatic. Heart: S1, S2. Normal. Tachycardic. Lungs: Equal air entry bilaterally. Abdomen: Positive bowel sounds. Soft, nontender, nondistended. Extremities: No edema. No cyanosis. No calf tenderness. Neurologic: The patient is alert and oriented x3. DIAGNOSTIC DATA: Labs: White blood cell count 14, hemoglobin 6.9, hematocrit 21, platelets 103,000. Sodium 150, potassium 3.5, chloride 114, CO2 20, BUN 47, creatinine 2.9, glucose 124, calcium 5, phosphorus 2.3. Chest x-ray shows mild left basilar atelectasis. ASSESSMENT AND PLAN: 1. Acute pulmonary embolism. Continue on Lovenox. 2. Acute left lower extremity deep vein thrombosis. Continue on anticoagulation. 3. Thrombocytopenia. We will consult Hematology for further recommendations. 4. Acute kidney injury. Improving. Nephrology is following. 5. Metabolic acidosis. Improved. 6. Partial small bowel obstruction. Improved. General Surgery is following. 7. Pneumonia secondary to Escherichia coli. Continue on Zosyn. 8. Leukocytosis. Continue on IV antibiotic therapy. 9. Diabetes mellitus type 2. Continue on sliding scale insulin. 10. Hypocalcemia. We will give the patient a dose of calcium gluconate. 11. Hypernatremia. The patient is now on D5 W. We will continue to monitor the sodium closely. cc: Analilia Barrett MD
[2017-04-24 17:36] LABS: RETIC% 1.37 % (0.8-2.1); RETIC-HE 27.5 PG (28.2-36.6)
[2017-04-25] MEDS: ZOSYN 2.25 GM/NS 2.25 GM/50 ML IVPB IV SCH ×3 (00:01→15:15)
[2017-04-25] MEDS: D5W 1,000 ML IV SCH (01:26)
[2017-04-25] MEDS: XOPENEX NEB INH SCH ×6 (02:35→22:54)
[2017-04-25 05:54] LABS: BASO% 0.2 % (0.0-0.8); EOS# 0.27 X1000 (0.0-0.7); EOS% 1.3 % (0.0-10.0); IMM GRAN# 0.38 X1000 (0.0-0.04); IMM GRAN% 1.8 % (0.0-0.5); LYMPH# 2.59 X1000 (1.2-3.4); LYMPH% 12.6 % (20.5-51.1); MANUAL DIFF NEEDED? NO; MCH 30.8 PG (27-31); MCHC 33.3 g/dL (33-37); MCV 92.5 FL (81-99); MONO# 1.52 X1000 (0.11-0.59); MONO% 7.4 % (1.7-9.3); MPV 12.6 FL (7.4-10.4); NEUT% 76.7 % (42.2-75.2); PLT 103 X1000 (130-400); RBC 2.92 XMIL (4.2-5.4)
[2017-04-25] MEDS: HUMULIN R SUBQ SCH ×3 (06:01→18:35)
[2017-04-25] MEDS: PROTONIX IV SCH (06:10)
--- NOTE | 2017-04-25 06:58 | PROGRESS NOTE ---
DATE: 04/25/2017 SUBJECTIVE: The patient did have a bowel movement. She is doing okay with her NG tube clamped. Tolerated clear liquids. She had only minimal nausea. Nursing staff reports no major issues. OBJECTIVE: Vital Signs: Patient is currently afebrile. Her vital signs are stable. General: No acute distress. Resting comfortably. HEENT: Normocephalic, atraumatic. Pupils equal, round, and reactive to light. Mucous membranes moist. Oropharynx benign. Neck supple. Trachea in midline. Cardiovascular: Mildly tachycardic. Lungs: Grossly clear. Abdomen is soft, nontender, nondistended. Extremities: Moves all extremities. Neurologic: Grossly intact. Skin: No signs of jaundice. Vascular: All extremities perfused. LABORATORY: White blood cell count is 20, which is up from 14. Hematocrit is 27 which is up from 21. Platelet count 103,000. ASSESSMENT AND PLAN: A 76-year-old female with multiple medical comorbidities with acute pulmonary embolism and small bowel obstruction. 1. Multiple medical comorbidities currently being managed by the hospitalist service. 2. Leukocytosis. At this time, etiology unclear. We will defer further management to the hospitalist service. 3. Acute pulmonary embolism. At this time, the patient is on Lovenox. 4. Small bowel obstruction. At this time, it is clinically resolved. I will remove her nasogastric tube and start her on a full liquid diet. We will monitor and see how she does. cc: Dagoberto Hassan MD
[2017-04-25 07:14] LABS: ALBUMIN 2.6 g/dL (3.5-5.0); CALCIUM 5.1 mg/dL (8.8-10.2); POTASSIUM 3.7 mmol/L (3.5-5.1)
[2017-04-25] MEDS ORDERED: CALCIUM GLUCONATE 1 GM in NS 50 ML IV ONE ×2 (07:39→18:00)
--- NOTE | 2017-04-25 07:45 | Diag Imaging Result Doc PS360 ---
EXAM: ABDOMEN FLAT/UPRIGHT HISTORY: obstruction TECHNIQUE: AP flat and upright portable abdomen at 0530 COMMENT: There is contrast in the colon including the sigmoid. There is gas in the rectum. There is some small bowel gas. The stomach does not appear to be distended. The NG tube tip is in the fundus of the stomach. IMPRESSION: Nonspecific abdomen. No evidence of obstruction. Electronically signed by Anthony Contreras 04/25/2017 7:43 AM
[2017-04-25] MEDS: NS NEB INH SCH ×3 (08:06→19:38)
--- NOTE | 2017-04-25 09:17 | PROGRESS NOTE ---
DATE: 04/25/2017 TIME SEEN: 0715 hours. SUBJECTIVE: Ms. Nunez is sleeping. She awakens easily. She complains of some lower back pain. She thinks it is related to the bed. OBJECTIVE: Her most recent vital signs: Her last temperature is 98.2 degrees, blood pressure 118/64, heart rate 112, respirations are about 42. She remains on 2 L nasal cannula. Last recorded saturation is 97%. She has had 4090 in; she has had 995 out per Francis catheter and some emesis yesterday. LABORATORY DATA: Sodium 144, potassium 3.7, chloride 105, CO2 22, BUN 35, creatinine 2.4, glucose 118. Her anion gap is 17, calcium is 5.1, phosphorus 2.2, albumin 2.6. Her white count 20.59, hemoglobin 9, hematocrit 27, platelet 103. PHYSICAL EXAMINATION: General: This is a 76-year-old white female. She is resting quietly in bed. She appears chronically ill, though she is in some mild distress secondary to her tachypnea. Skin: Warm and dry. HEENT: Normocephalic, atraumatic. Conjunctivae pale. She has EMMA. Mucous membranes are dry. Neck: Supple. Trachea midline. No JVD. Cardiovascular: Regular rate and rhythm. She has a positive S4, otherwise no murmur appreciated. Lungs : Clear to auscultation anterior. Equal excursion with diminished breath sounds to her posterior bases. She remains on O2. Abdomen: Hypoactive bowel sounds. Nontender noted. Extremities: She has no edema, no clubbing or cyanosis. Integumentary: No rashes or lesions evident. Neurological: Alert and oriented x3. ASSESSMENT: 1. Acute kidney injury on chronic kidney disease. Patient's creatinine continues to slowly improve. It is down to 2.4 today. This has continued to improve during her hospitalization. We will plan to change her intravenous fluids to half normal saline and decrease the rate to 75 mL an hour since patient has decreased nasogastric tube output and has positive bowel sounds this morning. 2. Electrolytes. These are stable. She has hypocalcemia. She was given an ampule of calcium gluconate this morning. 3. Acid-base balance. This has continued to correct, even though we did stop her sodium bicarbonate per her nasogastric tube secondary to her small bowel obstruction. We will continue to monitor. 4. Leukocytosis. Patient does have pneumonia. She is on renal dosed antibiotics. 5. Increased work of breathing. Patient has pneumonia and positive pulmonary embolus. She remains on Lovenox. 6. Anemia. This remains stable. 7. Small bowel obstruction. This is being followed by surgery and the primary care team. I would like to thank you for allowing us to follow with this patient. Seen, data reviewed, discussed with David Redman on 04/25/17. I agree with the above assessment and plan of care. rg Dictated by EHSAN Ruiz for Sudarshan Huynh MD cc: EHSAN Ruiz MD [facility]
[2017-04-25] MEDS: SODIUM BICARBONATE PO SCH ×2 (09:33→21:06)
[2017-04-25] MEDS: NEUTRA-PHOS PO SCH ×4 (09:33→21:07)
[2017-04-25] MEDS: LOVENOX SUBQ SCH (09:33)
[2017-04-25] MEDS: VITAMIN B-12 SL SCH (09:33)
[2017-04-25] MEDS: 1/2 NS 1,000 ML IV SCH (09:57)
[2017-04-25] MEDS: MERREM 500 MG in NS 50 ML IV SCH ×2 (09:57→21:06)
[2017-04-25] MEDS: DILAUDID IV PRN ×2 (13:51→21:19)
[2017-04-25] MEDS: ATIVAN IV PRN (15:15)
--- NOTE | 2017-04-25 16:00 | PROGRESS NOTE ---
DATE: 04/25/2017 SUBJECTIVE: The patient is resting comfortably in bed. NG tube has been removed. OBJECTIVE: Vital Signs: Temperature 98.3 degrees, blood pressure 116/61, heart rate 98, respirations 18, O2 saturations 96% on 2 L nasal cannula. General: This is an elderly female, lying in bed, in no acute distress. Head: Normocephalic atraumatic. Heart: S1, S2. Normal. Regular rate and rhythm. Lungs: Equal air entry bilaterally. No crackles. No rales. Abdomen: Positive bowel sounds. Soft, nontender, nondistended. Extremities: No edema. No cyanosis. Neurologic: The patient is alert and oriented x3. LABS: White blood cell count 20, hemoglobin 9, hematocrit 27, platelets 103,000. Sodium 144, potassium 3.7, chloride 105, BUN 35, creatinine 2.4, glucose 118. Calcium 5.1, phosphorus 2.2. Abdominal x-ray shows no evidence of obstruction. ASSESSMENT AND PLAN: 1. Aspiration pneumonia. The patient's sputum culture is growing E. coli. Will add Merrem. Continue with bronchodilator therapy. 2. Acute PE and left lower extremity deep vein thrombosis. Continue on Lovenox. Hematology is following. 3. Right ileus. Improved. The patient's NG tube has been removed and she has been placed on a full liquid diet. Continue to monitor closely. General Surgery is following. 4. Acute kidney injury. Slowly improving. The patient remains on IV fluids. Nephrology is following. 5. Hypocalcemia. Will replace the patient's calcium. 6. Diabetes mellitus type 2. Continue on sliding scale insulin. 7. Thrombocytopenia. Stable. Hematology is following. 8. Leukocytosis. This may be secondary to pneumonia. Merrem has been added to the patient's antibiotic regimen. 9. Metabolic acidosis. Improving daily. 10. The patient is stable for transfer to the medical floor. 11. Will consult physical therapy. cc: Analilia Barrett MD
[2017-04-25] MEDS: ZOFRAN IV PRN (21:19)
[2017-04-26] MEDS: 1/2 NS 1,000 ML IV SCH ×2 (00:45→16:35)
[2017-04-26] MEDS: HUMULIN R SUBQ SCH ×5 (00:45→20:12)
[2017-04-26] MEDS: ZOSYN 2.25 GM/NS 2.25 GM/50 ML IVPB IV SCH ×2 (01:37→09:28)
[2017-04-26] MEDS: ATIVAN IV PRN ×2 (03:56→09:49)
[2017-04-26] MEDS: XOPENEX NEB INH SCH ×6 (04:02→22:54)
[2017-04-26] MEDS: DILAUDID IV PRN ×2 (04:22→10:57)
[2017-04-26] MEDS: PROTONIX IV SCH (06:28)
[2017-04-26] MEDS: SODIUM CHLORIDE 0.9% INJ SCH (06:28)
--- NOTE | 2017-04-26 06:42 | PROGRESS NOTE ---
DATE: 04/26/2017 SUBJECTIVE: The patient moved from the ICU to the floor. I discussed her care with the nurse. She has had some anxiety over the last couple of hours. They did give her breathing treatment but now patient is reporting having some shortness of breath. She did tolerate her full liquids. She is having bowel movements. OBJECTIVE: Vital Signs: Patient is currently afebrile. Her vital signs are stable. General: She is resting comfortably but some shortness of breath. HEENT: Normocephalic and atraumatic. Pupils are equal, round and reactive to light. Mucous membranes moist. Oropharynx benign. Neck: Supple. Trachea midline. Cardiovascular: Mildly tachycardic. Lungs: There is some shortness of breath. Abdomen: Soft, nontender, and nondistended. Extremities: Moves all extremities. Neurologic: Grossly intact. Skin: No signs of jaundice. Vascular: All extremities perfused. LABORATORY: None this morning. ASSESSMENT AND PLAN: A 76-year-old female with multiple medical comorbidities with acute pulmonary embolism, and small bowel obstruction. 1. Multiple medical comorbidities. At this time, being managed by the hospitalist service. 2. Leukocytosis. At this time, patient is being managed by the hospitalist service. There is potential for pneumonia. 3. Acute pulmonary embolism. At this time, patient is on Lovenox. Her respiratory status is somewhat increased with labored breathing. I will discuss with the hospitalist service about her current situation. She may need more aggressive breathing treatments. 4. Small-bowel obstruction. At this time, I think it is clinically resolved. I have started her on pureed diet per the speech evaluation. At this time, no surgical intervention needed. My partner will be available over the weekend while I am gone. cc: Dagoberto Hassan MD
[2017-04-26 06:58] LABS: BASO% 0.4 % (0.0-0.8); EOS# 0.17 X1000 (0.0-0.7); EOS% 0.7 % (0.0-10.0); HEMATOCRIT 25.8 % (37.0-47.0); HEMOGLOBIN 8.7 g/dL (12.0-16.0); IMM GRAN# 0.37 X1000 (0.0-0.04); IMM GRAN% 1.6 % (0.0-0.5); LYMPH% 10.6 % (20.5-51.1); MANUAL DIFF NEEDED? YES; MCH 31.4 PG (27-31); MCHC 33.7 g/dL (33-37); MCV 93.1 FL (81-99); MONO# 1.51 X1000 (0.11-0.59); MONO% 6.7 % (1.7-9.3); MPV 12.3 FL (7.4-10.4); PLT 91 X1000 (130-400); RBC 2.77 XMIL (4.2-5.4)
--- NOTE | 2017-04-26 07:23 | Diag Imaging Result Doc PS360 ---
EXAM: CHEST-PORTABLE HISTORY: SOB, PNA TECHNIQUE: AP portable at 0655 COMMENT: There is a PICC line with its tip in the right atrium. There is atelectasis in the lingula and left lower lobe which are slightly improved since 04/24/2017. No additional findings are present. IMPRESSION: Improved left basilar atelectasis. Electronically signed by Anthony Contreras 04/26/2017 7:20 AM
[2017-04-26 07:27] LABS: ALLEN TEST YES; BE -6.3 mmoll (-3.0-3.0); BLOOD TYPE ARTERIAL; DRAW SITE L RADIAL; METHB 0.9 % (0.0-1.5); O2(CT) 14.9 mL/dL (15.0-23.0); PCO2(98.6) 27 mmHg (35-45); PO2(98.6) 80 mmHg (60-100); SAMPLE BLOOD; THB 11.1 g/dL (11.5-17.4); pH(98.6) 7.41 (7.35-7.45)
[2017-04-26 07:29] LABS: MODALITY CANNULA
[2017-04-26 07:41] LABS: BANDS 2 % (0-1); EOS 1 % (1-10); LYMPHS 11 % (21-51); MONO 3 % (1-9)
[2017-04-26 07:44] LABS: ALBUMIN 2.5 g/dL (3.5-5.0); CALCIUM 4.5 mg/dL (8.8-10.2); POTASSIUM 3.4 mmol/L (3.5-5.1)
[2017-04-26] MEDS ORDERED: CALCIUM GLUCONATE 2 GM in NS 100 ML IV ONE (08:30)
[2017-04-26] MEDS ORDERED: KLOR-CON PO ONE (09:00)
[2017-04-26] MEDS: SOLU-MEDROL IV SCH ×2 (09:32→17:10)
[2017-04-26] MEDS: NEUTRA-PHOS PO SCH (09:39)
[2017-04-26] MEDS: LOVENOX SUBQ SCH (09:39)
[2017-04-26] MEDS: SODIUM BICARBONATE PO SCH ×2 (09:39→20:12)
[2017-04-26] MEDS: VITAMIN B-12 SL SCH (09:39)
[2017-04-26] MEDS ORDERED: MUCOMYST 20% INH ONE (10:44)
--- NOTE | 2017-04-26 11:09 | PROGRESS NOTE ---
DATE: 04/26/2017 SUBJECTIVE: She was moved out to the floor, but she has had increasing problems with shortness of breath. She has not really been able to eat. No pain. OBJECTIVE: Vital Signs: Blood pressure 105/51, heart rate 122, respirations 22, afebrile. Intake 650 mL and output 350 mL. General: An elderly woman lying at 30 degrees with moderate respiratory distress. Increased work of breathing. Skin: Warm and dry. Conjunctivae are pink. Pupils are equal. Oropharynx is dry. Neck: Supple. The neck veins collapse with inspiration. Heart: Regular and tachycardic. Lungs: Diffuse wheezing and accessory muscle use. No retractions. A few crackles. Abdomen: Soft, nontender. Bowel sounds are present. Extremities: Really minimal edema. No clubbing or cyanosis. LABORATORY DATA: Sodium 139, potassium 3.4 chloride 101, bicarbonate 19, BUN 42, creatinine 3.3, hemoglobin 8.7. IMPRESSION AND PLAN: 1. Acute kidney injury: Her creatinine has risen again in the last 24 hours, and her urine output is somewhat low. We will check urine electrolytes today. Continue intravenous fluids at 100 mL per hour. Her chest x-ray certainly does not suggest pulmonary edema. I expect that her declining kidney function is related to her decline in respiratory status. She does not have any acute indications for dialysis at this time. 2. Modest hypokalemia and moderate metabolic acidosis are noted, but no treatment is required today. cc: Sudarshan Huynh MD
[2017-04-26] MEDS: MERREM 500 MG in NS 50 ML IV SCH (11:44)
--- NOTE | 2017-04-26 15:13 | PROGRESS NOTE ---
DATE: 04/26/2017 SUBJECTIVE: The patient is a little more confused, as per the family, today and also her respiratory status is worse today. OBJECTIVE: Vital Signs: Temperature 97.9 degrees, blood pressure 105/51, heart rate 115, respirations 25, and O2 saturation is 98% on 2L nasal cannula. General: This is a chronically ill-appearing, elderly female, lying in bed in no acute distress. HEENT: Head normocephalic, atraumatic. Heart: S1 and S2 normal. Tachycardic. Lungs: Equal air entry bilaterally with diffuse wheezes in all lung [place]. No rhonchi. No crackles. Abdomen: Positive bowel sounds. Soft, nontender, nondistended. Extremities: Edema +1. No cyanosis. No calf tenderness. Neurologic: The patient is awake, but is confused. She is able to move all 4 extremities. LABORATORY: White blood cell count 22, hemoglobin 8.7, hematocrit 25, platelets 91,000. ABG: pH of 7.41, pCO2 of 27, PO2 of 80. Sodium 139, potassium 3.4, chloride 101, CO2 of 19, BUN 2, creatinine 3.3, glucose 85, calcium 4.5, phosphorus 4.2. CRP 374. Albumin 2.5. ASSESSMENT AND PLAN: 1. Acute chronic obstructive pulmonary disease exacerbation. Will add IV steroids. Continue on bronchodilator therapy. Will also consult Pulmonary. Continue on supplemental oxygen. 2. Escherichia coli in the sputum. We will consult Infectious Disease for further assistance with antibiotic therapy. We will also repeat the blood cultures. 3. Metabolic encephalopathy. This may be secondary to an underlying infection. We will continue to monitor the patient's mental status closely. 4. Acute kidney injury. The patient's creatinine is elevated today. We will defer to the employment interviewer. 5. Acute pulmonary embolus with left lower extremity deep vein thrombosis. Continue on renal dosed Lovenox. 6. Ileus. Resolved. The patient is having regular bowel movements. 7. Thrombocytopenia. Unchanged. Hematology is following. 8. Persistent hypocalcemia. We will give the patient 2 g of calcium gluconate today. She is also vitamin D deficient. Will start vitamin D replacement. 9. Metabolic acidosis. The patient is currently on sodium bicarbonate tablets. 10. Diabetes mellitus, type 2. Continue on sliding scale insulin. 11. Gastrointestinal prophylaxis. Continue on IV Protonix. Since the patient's respiratory status has declined, will transfer to CICU for closer monitoring. cc: Analilia Barrett MD MTDD
--- NOTE | 2017-04-26 15:22 | PROGRESS NOTE ---
DATE: 04/26/2017 PRESENT ILLNESS: The patient has been somewhat lethargic today. The patient also is breathing deeply and rapidly. She has an increasing leukocytosis as well. MEDICATIONS: The patient is receiving Zosyn and meropenem, and she is on Lovenox. Steroids also have been stated. PHYSICAL EXAMINATION: Vital Signs: Temperature is 97.9 degrees, pulse 115, respirations 25, blood pressure 105/51. General: This is an ill-appearing, elderly female. She seems to be breathing very deeply and rapidly. Lungs: Clear to auscultation. Cardiovascular: Heart rate is regular. Abdomen: Soft and nontender. Skin: We rolled the patient on her side and I examined her back and buttock areas and there are no bedsores. Extremities: The legs are not tender or erythematous. LAB AND X-RAY: The CBC today shows a white count up to 22,700, hemoglobin 8.7, and platelet count 91,000. Patient's blood gases show a pH of 7.41, a PO2 of 80, pCO2 of 27. Creatinine is 3.3. GFR is 14. The Legionella urinary antigen and a pneumococcal urinary antigen are both negative. The IgG and IgA levels are normal. ASSESSMENT AND PLAN: As far as the patient's leukocytosis goes, she is on Solu- Medrol, however that just started recently and her white count was going up before that. I am concerned that the patient's deep respirations may be that she is having pulmonary emboli even though she is on Lovenox. What I plan to do is put the patient on daptomycin in case she has developed an infection from her PICC resistant to the 2 antibiotics that she was on. The infection namely would be methicillin-resistant Staphylococcus aureus. I have also put the patient on Rocephin to provide coverage from the Escherichia coli in her sputum even though the 2 antibiotics she was previously on would get Escherichia coli also well. We have ordered blood cultures. Therefore the patient is going to be on Cubicin and Rocephin. The Cubicin will be given every other day because of the patient's end-stage renal disease. COMORBIDITIES: Include that she is elderly, and patient has diabetes. Her main comorbidity is that she is diabetic. cc: Hector Mora MD [facility]
[2017-04-26] MEDS ORDERED: CALCIUM GLUCONATE 1 GM in NS 50 ML IV ONE (15:36)
[2017-04-26] MEDS ORDERED: LASIX IV ONE (15:40)
[2017-04-26] MEDS ORDERED: HALDOL IV PRN (15:55)
[2017-04-26] MEDS ORDERED: VITAMIN D PO SCH (16:00)
[2017-04-26] MEDS: CUBICIN (FOR INPATIENT USE) 500 MG in NS 100 ML IV SCH (16:36)
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
--- NOTE | 2017-04-26 17:02 | Diag Imaging Result Doc PS360 ---
EXAM: LUNG SCAN / VQ INDICATION: pulmonary emboli TECHNIQUE: 40.3 mCi of aerosolized technetium 99 DTPA was administered for the ventilation portion of the scan. 6.1 mCi of IV technetium 99 MAA was administered for the perfusion portion of the scan. COMPARISON: Recent V/Q scan dated 04/23/2017 FINDINGS: Much of the aerosolized radiotracer is condensed in the central bronchi on the ventilation portion of the scan. This limits this study. The wedge-shaped unmatched perfusion defect involving the right lung seen previously is again identified. It appears less prominent. Please note that this does not change the high probability classification of the previous recent study even if it had resolved. Any follow-up V/Q scans in the near future will not change this classification. If the patient could receive IV contrast, a CTA of the chest would likely be helpful. No definite new perfusion defects are identified. IMPRESSION: As above. Electronically signed by August Rodriguez 04/26/2017 5:00 PM
[2017-04-26 17:35] LABS: URINE SOURCE CATH
[2017-04-26 17:49] LABS: BILIRUBIN URINE NEGATIVE (NEGATIVE); BLOOD URINE LARGE (NEGATIVE); COLOR ORANGE; GLUCOSE URINE NEGATIVE (NEGATIVE); LEUKOCYTES URINE LARGE (NEGATIVE); NITRITE URINE NEGATIVE (NEGATIVE); PH URINE 5.5; PROTEIN URINE 70 mg/dL (NEGATIVE); SP GRAVITY URINE 1.021; TURBIDITY URINE TURBID (CLEAR); URINE MICRO REVIEW NEEDED? YES; UROBILINOGEN URINE NORMAL (NORMAL)
[2017-04-26 17:53] LABS: UR EPITHELIAL CELLS <10 /HPF (<10); URINE BACTERIA NEGATIVE /HPF; URINE RBC TNTC /HPF (<10); URINE WBC TNTC /HPF (<10)
[2017-04-26 17:59] LABS: UR CREAT RANDOM 162.4 mg/dL (11-20)
[2017-04-26 18:02] LABS: URINE CASTS NONE SEEN; URINE CRYSTALS NONE SEEN; URINE SMALL ROUND CELLS NONE SEEN
[2017-04-26] MEDS: ROCEPHIN 2 GM/NS 2 GM/50 ML IVPB IV SCH (18:18)
[2017-04-26] MEDS: MUCOMYST 20% INH SCH (19:35)
[2017-04-27] MEDS: 1/2 NS 1,000 ML IV SCH ×2 (03:03→15:23)
[2017-04-27] MEDS: SOLU-MEDROL IV SCH ×3 (03:03→17:33)
[2017-04-27] MEDS: XOPENEX NEB INH SCH ×6 (03:24→23:15)
[2017-04-27 04:50] LABS: ALLEN TEST YES; BE -7.7 mmoll (-3.0-3.0); BLOOD TYPE ARTERIAL; DRAW SITE R RADIAL; METHB 0.7 % (0.0-1.5); O2(CT) 11.7 mL/dL (15.0-23.0); PCO2(98.6) 24 mmHg (35-45); PO2(98.6) 85 mmHg (60-100); SAMPLE BLOOD; SAO2 97.4 % (95.0-100.0); THB 8.6 g/dL (11.5-17.4); pH(98.6) 7.42 (7.35-7.45)
[2017-04-27 04:59] LABS: MODALITY CANNULA
[2017-04-27] MEDS ORDERED: CALMOSEPTINE OINTMENT TOP PRN (05:39)
[2017-04-27] MEDS: SODIUM CHLORIDE 0.9% INJ SCH (05:57)
[2017-04-27] MEDS: PROTONIX IV SCH ×2 (05:57→09:04)
[2017-04-27 06:00] LABS: BASO% 0.1 % (0.0-0.8); HEMATOCRIT 24.8 % (37.0-47.0); HEMOGLOBIN 8.5 g/dL (12.0-16.0); IMM GRAN# 0.24 X1000 (0.0-0.04); IMM GRAN% 1.2 % (0.0-0.5); LYMPH# 0.84 X1000 (1.2-3.4); LYMPH% 4.4 % (20.5-51.1); MANUAL DIFF NEEDED? NO; MCH 30.6 PG (27-31); MCHC 34.3 g/dL (33-37); MCV 89.2 FL (81-99); MONO# 0.43 X1000 (0.11-0.59); MONO% 2.2 % (1.7-9.3); NEUT% 92.1 % (42.2-75.2); PLT 94 X1000 (130-400); RBC 2.78 XMIL (4.2-5.4)
[2017-04-27 06:21] LABS: ALBUMIN 2.2 g/dL (3.5-5.0); POTASSIUM 3.4 mmol/L (3.5-5.1)
[2017-04-27 06:54] LABS: CALCIUM 4.8 mg/dL (8.8-10.2)
[2017-04-27] MEDS ORDERED: CALCIUM GLUCONATE 2 GM in NS 100 ML IV ONE ×3 (06:56→18:00)
[2017-04-27] MEDS: HUMULIN R SUBQ SCH ×4 (07:32→21:03)
[2017-04-27] MEDS: MUCOMYST 20% INH SCH ×2 (07:48→19:26)
[2017-04-27] MEDS: POTASSIUM CHLORIDE 20 MEQ/SWI 20 MEQ/100 ML IVPB IV SCH ×2 (07:53→09:58)
--- NOTE | 2017-04-27 07:58 | Diag Imaging Result Doc PS360 ---
EXAM: CHEST-PORTABLE INDICATION: dyspnea TECHNIQUE: One view COMPARISON: 04/26/2017 FINDINGS: Right PICC line is stable. Mild lingular atelectasis continues to improve. No new consolidations are appreciated. The cardiac silhouette is stable. IMPRESSION: Continued improvement in the mild lingular atelectasis. Stable chest, otherwise. Electronically signed by August Rodriguez 04/27/2017 7:56 AM
[2017-04-27] MEDS: SODIUM BICARBONATE PO SCH ×2 (08:40→21:04)
[2017-04-27] MEDS: CALTRATE 600 + D PO SCH ×2 (08:40→21:04)
[2017-04-27] MEDS: LOVENOX SUBQ SCH (08:41)
[2017-04-27] MEDS: VITAMIN B-12 SL SCH (09:06)
--- NOTE | 2017-04-27 14:08 | PROGRESS NOTE ---
DATE: 04/27/2017 SUBJECTIVE: The patient is resting comfortably in bed. She states that she feels a little bit better today. OBJECTIVE: Vital Signs: Temperature 98.1 degrees, blood pressure 109/60, heart rate 100, respirations 24, O2 saturations 97% on 2 L nasal cannula. General: This is a chronically ill- appearing, elderly female, lying in bed, in no acute distress. Head: Normocephalic, atraumatic. Heart: S1, S2. Normal. Tachycardic. Lungs: Diffuse rhonchi with expiratory wheezes. Abdomen: Positive bowel sounds. Soft, nontender, nondistended. Extremities +1 and cyanosis. Calf tenderness. Neurologic. Patient is alert and oriented x3. LABORATORY DATA: White blood 19, hemoglobin 8.5, hematocrit 24, platelets 94, 000. Sodium 139, potassium 3.4, chloride 101, CO2 of 15. BUN 54, creatinine 3.2, glucose 100. Calcium 4.8, phosphorus 4.6. Albumin 2.2. ASSESSMENT AND PLAN: 1. Acute chronic obstructive pulmonary disease exacerbation. Continue on IV steroids, IV antibiotics and scheduled bronchodilator therapy. Pulmonary is following. 2. Pneumonia secondary to Escherichia coli. Continue on the current antibiotic regimen as directed by Dr. Mora. 3. Acute pulmonary embolism with left lower extremity deep vein thrombosis. Continue on Lovenox. 4. Metabolic encephalopathy. Improved. 5. Acute kidney injury. Unchanged. Management as per the plastic jig and fixture builder. 6. Metabolic acidosis. Slightly worse today. The patient is currently on sodium bicarbonate. 7. Ileus. Resolved. 8. Hypocalcemia. Continue to replace the patient's calcium. The patient was started on vitamin D replacement yesterday. 9. Diabetes mellitus, type 2. Continue on sliding scale insulin. 10.Severe protein calorie malnutrition. Will consult the coal yard supervisor. 11. Gastrointestinal prophylaxis. Continue on IV Protonix. cc: Analilia Barrett MD MTDD
--- NOTE | 2017-04-27 14:13 | PROGRESS NOTE ---
DATE: 04/27/2017 SUBJECTIVE: She states she feels somewhat better today than yesterday. No nausea or vomiting. She is still somewhat short of breath but improved. OBJECTIVE: Vital Signs: Blood pressure 109/60, heart rate 100, respirations 24, afebrile. Intake 1 L. Output 700 mL. PHYSICAL EXAMINATION: No acute distress. Skin is warm and dry. Conjunctivae are pink. Neck vein distention is not appreciated. Trachea is midline. Heart is regular and mildly tachycardic. No gallops. Lungs have equal breath sounds. Less wheezing today. Abdomen soft, nontender. Bowel sounds are present. Extremities have no edema, clubbing, or cyanosis. LABORATORY DATA: Sodium 139, potassium 3.4, chloride 101, bicarbonate 15. BUN 54, creatinine 3.2. Hemoglobin 8.5. IMPRESSION: 1. Acute kidney injury. Labs are about the same today as yesterday. Very slow recovery of acute kidney injury. Urine electrolytes collected yesterday suggested a low venous state. She is in slightly positive fluid balance over the last several days, so I will make no changes but allow her to rehydrate slowly on her own. She has no evidence of pulmonary edema on her chest x-ray. 2. Electrolytes acceptable. 3. Acid base: Her bicarbonate has fallen progressively over the last 2 days but certainly better than her initial presenting data. She does have increased anion gap today. We will check serum acetone and lactate. Lactate was 1.6 this morning on blood gas. cc: Sudarshan Huynh MD
[2017-04-27] MEDS: ROCEPHIN 2 GM/NS 2 GM/50 ML IVPB IV SCH (15:24)
[2017-04-27] MEDS ORDERED: VANCOMYCIN 1 GM/NS 1 GM/250 ML IVPB IV SCH (17:00)
[2017-04-28] MEDS: SOLU-MEDROL IV SCH ×3 (02:01→16:48)
[2017-04-28] MEDS: 1/2 NS 1,000 ML IV SCH ×3 (02:01→18:53)
[2017-04-28] MEDS: XOPENEX NEB INH SCH ×6 (03:23→22:40)
[2017-04-28] MEDS: PROTONIX IV SCH (06:14)
[2017-04-28] MEDS: SODIUM CHLORIDE 0.9% INJ SCH (06:14)
[2017-04-28] MEDS: HUMULIN R SUBQ SCH ×5 (06:14→23:12)
[2017-04-28 06:57] LABS: ALBUMIN 2.1 g/dL (3.5-5.0); POTASSIUM 3.7 mmol/L (3.5-5.1)
[2017-04-28 07:36] LABS: CALCIUM 5.3 mg/dL (8.8-10.2)
[2017-04-28] MEDS ORDERED: CALCIUM GLUCONATE 2 GM in NS 100 ML IV ONE ×2 (07:44→18:08)
[2017-04-28] MEDS: MUCOMYST 20% INH SCH ×2 (07:54→19:30)
--- NOTE | 2017-04-28 08:03 | Diag Imaging Result Doc PS360 ---
EXAM: CHEST-PORTABLE INDICATION: dyspnea TECHNIQUE: One view COMPARISON: 04/27/2017 FINDINGS: Right PICC line is in stable position. The patient is rotated toward the right. Mild subsegmental lingular atelectasis is approximately stable. There are no definite new consolidations. Cardiac silhouette is stable. IMPRESSION: Stable chest. Electronically signed by August Rodriguez 04/28/2017 8:00 AM
[2017-04-28] MEDS: CALTRATE 600 + D PO SCH (08:22)
[2017-04-28] MEDS: VITAMIN B-12 SL SCH (08:22)
[2017-04-28] MEDS: SODIUM BICARBONATE PO SCH ×3 (08:22→23:12)
[2017-04-28] MEDS: LOVENOX SUBQ SCH (08:24)
[2017-04-28 08:38] LABS: BASO% 0.1 % (0.0-0.8); EOS# 0.01 X1000 (0.0-0.7); EOS% 0.1 % (0.0-10.0); HEMOGLOBIN 8.4 g/dL (12.0-16.0); IMM GRAN# 0.23 X1000 (0.0-0.04); IMM GRAN% 1.4 % (0.0-0.5); LYMPH# 0.77 X1000 (1.2-3.4); LYMPH% 4.6 % (20.5-51.1); MANUAL DIFF NEEDED? NO; MCH 30.8 PG (27-31); MCV 87.9 FL (81-99); MONO# 0.45 X1000 (0.11-0.59); MONO% 2.7 % (1.7-9.3); MPV 12.3 FL (7.4-10.4); NEUT% 91.1 % (42.2-75.2); PLT 104 X1000 (130-400); RBC 2.73 XMIL (4.2-5.4)
[2017-04-28] MEDS: CUBICIN (FOR INPATIENT USE) 500 MG in NS 100 ML IV SCH (14:38)
[2017-04-28] MEDS: ROCEPHIN 2 GM/NS 2 GM/50 ML IVPB IV SCH (15:55)
--- NOTE | 2017-04-28 16:23 | PROGRESS NOTE ---
DATE: 04/28/2017 SUBJECTIVE: The patient is resting comfortably in bed. She states that she feels a lot better today. Shortness of breath has improved and there is less wheezing present. OBJECTIVE: Vital Signs: Temperature 98 degrees, blood pressure 120/73, heart rate 76, respirations 25, O2 saturations 100% on 2 L nasal cannula. General: This is an elderly female lying in bed in no acute distress. Head: Normocephalic, atraumatic. Heart: S1, S2 normal. Regular rate and rhythm. Lungs: Equal air entry bilaterally. Mild expiratory wheezes. Abdomen: Positive bowel sounds. Soft, nontender, nondistended. Extremities: No edema. No cyanosis. No calf tenderness. Neurologic: The patient is alert and oriented x3. LAB: White blood cell count 16, hemoglobin 8.4, hematocrit 24, platelets 104, 000. Sodium 140, potassium 3.7, chloride 102, CO2 14, BUN 60, creatinine 2.7, glucose 148, calcium 5.3, phosphorus 4.1, albumin 2.1. ASSESSMENT AND PLAN: 1. Acute chronic obstructive pulmonary disease exacerbation. Improving slowly. Continue on IV steroids, bronchodilator therapy and supplemental oxygen. 2. Escherichia coli in the sputum. Continue on the current IV antibiotic regimen as directed by Dr. Mora. 3. Acute pulmonary embolism with acute left lower extremity deep vein thrombosis. Continue on Lovenox. 4. Metabolic encephalopathy. Improved. 5. Acute kidney injury. Slowly improving. Continue on the IV fluid as directed by the farm hand. 6. Metabolic acidosis. The patient's gap continues to increase. Management as per the farm hand. 7. Hypocalcemia. Continue to replace the patient's calcium. Continue on caltrate. 8. Diabetes mellitus type 2. Continue on sliding scale insulin. 9. Ileus. Resolved. 10. Severe protein calorie malnutrition. Continue with Glucerna. Will await the dietitian's recommendations. 11. Vitamin D deficency. Continue with vitamin D replacement. 12. Physical therapy has been consulted. cc: Analilia Barrett MD MTDD
[2017-04-28] MEDS: TUMS EXTRA STRENGTH PO SCH ×2 (19:52→23:12)
[2017-04-28] MEDS: ZOFRAN IV PRN (19:54)
[2017-04-29] MEDS: SOLU-MEDROL IV SCH ×3 (02:04→16:35)
[2017-04-29] MEDS: XOPENEX NEB INH SCH ×6 (03:13→23:07)
[2017-04-29] MEDS: PROTONIX IV SCH ×2 (05:46→06:07)
[2017-04-29] MEDS: SODIUM CHLORIDE 0.9% INJ SCH (05:46)
[2017-04-29] MEDS: 1/2 NS 1,000 ML IV SCH ×2 (05:46→20:41)
[2017-04-29 05:47] LABS: BASO% 0.1 % (0.0-0.8); HEMATOCRIT 23.4 % (37.0-47.0); HEMOGLOBIN 8.2 g/dL (12.0-16.0); IMM GRAN# 0.33 X1000 (0.0-0.04); LYMPH# 0.85 X1000 (1.2-3.4); LYMPH% 7.8 % (20.5-51.1); MANUAL DIFF NEEDED? YES; MCH 30.9 PG (27-31); MCV 88.3 FL (81-99); MONO% 2.7 % (1.7-9.3); MPV 12.1 FL (7.4-10.4); NEUT% 86.4 % (42.2-75.2); PLT 101 X1000 (130-400); RBC 2.65 XMIL (4.2-5.4)
[2017-04-29] MEDS: HUMULIN R SUBQ SCH ×5 (05:47→20:41)
[2017-04-29 06:35] LABS: ALBUMIN 2.3 g/dL (3.5-5.0); CALCIUM 5.5 mg/dL (8.8-10.2); POTASSIUM 3.6 mmol/L (3.5-5.1)
[2017-04-29] MEDS ORDERED: CALCIUM GLUCONATE 2 GM in NS 100 ML IV ONE (06:48)
--- NOTE | 2017-04-29 07:07 | PROGRESS NOTE ---
DATE: 04/29/2017 PRESENT ILLNESS: The patient is being treated for a leukocytosis due to pneumonia and bacteremia. The leukocytosis has resolved. MEDICATIONS: The patient is receiving Rocephin and daptomycin. This is day 3 of both of these antibiotics. PHYSICAL EXAMINATION: Vital Signs: Temperature is 98.3 degrees, pulse 76, respirations 18, blood pressure 141/62. Generally: This is an elderly female who is in no acute distress. Lungs: There were bilateral rhonchi. Cardiovascular: Heart rate was regular, but at times it appeared to be irregular. Abdomen: Soft and nontender. Neurologic: The patient is alert. She can move her extremities. There is no tremor. LABORATORIES AND X-RAYS: There is no new x-ray. The patient's CBC for today shows a white count of 10,930, hemoglobin 8.2, and platelet count 101,000. Creatinine is 2.7. GFR is 16. Blood and throat culture for Streptococcus and urine all are negative. A sputum has grown Escherichia coli, however. ASSESSMENT AND PLAN: My plan now is to continue with the patient's Rocephin and in a few days repeat her CT scan. The patient's comorbidities include she is elderly. She has diabetes. The plan is to continue with the patient's current antibiotics. The Rocephin is for the patient's presumed Escherichia coli pneumonia, and the daptomycin is for a methicillin- resistant Staphylococcus aureus bacteremia. COMORBIDITIES: The patient's comorbidities, she is elderly. She has diabetes. My plan is to continue with her current antibiotics. cc: Hector Mora MD MTDD
[2017-04-29] MEDS: MUCOMYST 20% INH SCH ×2 (07:51→19:19)
[2017-04-29] MEDS: SODIUM BICARBONATE PO SCH ×2 (08:07→20:42)
[2017-04-29] MEDS: TUMS EXTRA STRENGTH PO SCH ×2 (08:07→20:42)
[2017-04-29] MEDS: LOVENOX SUBQ SCH (08:07)
[2017-04-29] MEDS: VITAMIN B-12 SL SCH (08:07)
[2017-04-29 08:58] LABS: BANDS 4 % (0-1); LYMPHS 6 % (21-51); MONO 2 % (1-9)
--- NOTE | 2017-04-29 11:15 | PROGRESS NOTE ---
DATE: 04/29/2017 SUBJECTIVE: Patient is sitting up in a chair. She has no complaints aside from wanting the Francis removed. OBJECTIVE: Vital Signs: Temperature 98.4 degrees, pulse 77, respiratory rate 20, blood pressure 140/58, intake 1.9 L. Output 1 L. PHYSICAL EXAMINATION: General: This is an elderly female, sitting up in bed. She is awake, alert, no acute distress. HEENT: Normocephalic, atraumatic. Her oral mucosa is moist. Neck: Supple. There is no JVD. Cardiovascular: Regular rate and rhythm. There is no murmur appreciated. Pulmonary: She has equal excursion. She has scattered wheezes bilaterally. No rhonchi or rales noted. Abdomen: Soft, positive bowel sounds. : She has a Francis catheter with yellow urine noted. Extremities: No clubbing, cyanosis or edema. Integumentary: Skin is warm and dry without rash or lesion. LAB DATA: WBC of 10.9, hemoglobin 8.2, sodium 140, potassium 3.6, chloride 104 , CO2 16, BUN 55, creatinine 2.0, calcium 5.5, phosphorus 3.9, albumin 2.3. PTH of 66. ASSESSMENT AND PLAN: 1. Acute kidney injury. Renal function had some modest improvement over the weekend. Urine output has been adequate. I will continue to follow with labs in the morning. 2. Electrolytes, acid-base balance. These are acceptable. Bicarbonate is stabilized. 3. Francis catheter. This can be removed as the patient has been ambulatory to the chair at this time. We will put the order in. 4. Hypocalcemia. She has had calcium gluconate along with vitamin D ordered by the primary. There is no obvious cause for that. The patient does not have a history of gastric surgery. She does have some chronic diarrhea after she had her gallbladder removed. Continue current therapy. Seen, data reviewed, discussed with Dilcia Benitez on 04/29/17. I agree with the above assessment and plan of care. rg Dictated by EHSAN Reza for Sudarshan Huynh MD cc: Sudarshan Huynh MD [facility]
--- NOTE | 2017-04-29 13:43 | PROGRESS NOTE ---
DATE: 04/29/2017 SUBJECTIVE: The patient is sitting up in a chair. She states that she feels a lot better today. No acute events noted overnight. OBJECTIVE: Vital Signs: Temperature 97 degrees, blood pressure 141/75, heart rate 83, respirations 20, O2 saturations 98% on 2 L nasal cannula. General: This is an elderly female, sitting up in a chair in no acute distress. HEENT: Head normocephalic; atraumatic. Heart: S1, S2. Normal. Regular rate and rhythm. Lungs: Coarse breath sounds. No crackles. No wheezing. No rales. Abdomen: Positive bowel sounds. Soft, nontender, nondistended. Extremities: No edema. No cyanosis. No calf tenderness. Neurologic: The patient is alert and oriented x3. No focal neurologic deficits noted. LABORATORY DATA: White blood cell count 10, hemoglobin 8.2, hematocrit 23. Sodium 140, potassium 3.6, chloride 104, CO2 16, BUN 55, creatinine 2, glucose 143, albumin 2.3 ASSESSMENT AND PLAN: 1. Acute chronic obstructive pulmonary disease exacerbation. Improved. Continue on the current steroids and bronchodilator therapy. 2. Escherichia coli in sputum. Continue on the antibiotic therapy as directed by Dr. Mora. 3. Acute pulmonary embolism with acute left lower extremity deep vein thrombosis. Continue on Lovenox. 4. Metabolic encephalopathy. Resolved. 5. Acute kidney injury. Improved. We will continue to monitor closely for improvement. 6. Persistent hypocalcemia. The corrected Ca is 6.9. We will continue on vitamin D replacement as well as oral calcium replacement. The patient will receive IV calcium gluconate today as well. 7. Diabetes mellitus type 2. Continue on sliding scale insulin. 8. Metabolic acidosis. Management as per the inflatable buildings laminator. 9. Ileus. Resolved. 10. Severe protein calorie malnutrition. Continue with Glucerna with each meal. 11. Vitamin D deficiency. Continue with vitamin D replacement. 12. Continue with physical therapy. 13. Disposition. The patient will likely require rehab upon discharge. cc: Analilia Barrett MD MTDD
[2017-04-29] MEDS: ROCEPHIN 2 GM/NS 2 GM/50 ML IVPB IV SCH (14:57)
[2017-04-30] MEDS: SOLU-MEDROL IV SCH ×3 (01:08→17:05)
[2017-04-30] MEDS: XOPENEX NEB INH SCH ×6 (03:22→23:17)
[2017-04-30 05:28] LABS: BASO% 0.2 % (0.0-0.8); HEMATOCRIT 24.4 % (37.0-47.0); HEMOGLOBIN 8.4 g/dL (12.0-16.0); IMM GRAN% 5.2 % (0.0-0.5); LYMPH% 9.4 % (20.5-51.1); MANUAL DIFF NEEDED? YES; MCH 30.9 PG (27-31); MCHC 34.4 g/dL (33-37); MCV 89.7 FL (81-99); MONO# 0.47 X1000 (0.11-0.59); MONO% 4.9 % (1.7-9.3); NEUT% 80.3 % (42.2-75.2); PLT 100 X1000 (130-400); RBC 2.72 XMIL (4.2-5.4)
[2017-04-30] MEDS: HUMULIN R SUBQ SCH ×4 (06:23→22:09)
[2017-04-30] MEDS: PROTONIX IV SCH (06:23)
[2017-04-30 06:42] LABS: ALBUMIN 2.4 g/dL (3.5-5.0); POTASSIUM 3.5 mmol/L (3.5-5.1)
[2017-04-30 07:04] LABS: BANDS 4 % (0-1); HYPOCHROM 1+; LYMPHS 6 % (21-51); MONO 2 % (1-9)
[2017-04-30 07:09] LABS: CALCIUM 5.6 mg/dL (8.8-10.2)
[2017-04-30] MEDS: MUCOMYST 20% INH SCH ×2 (07:57→19:40)
--- NOTE | 2017-04-30 08:49 | PROGRESS NOTE ---
DATE: 04/30/2017 PRESENT ILLNESS: The patient had leukocytosis and pneumonia and earlier bacteremia. All of these of these illnesses have cleared. MEDICATION: The patient is receiving Rocephin and daptomycin. PHYSICAL EXAMINATION: Vital Signs: Temperature is 98.2 degrees, pulse 73, respirations 16, blood pressure 131/61. Generally: This is a somewhat ill-appearing, elderly female. She is in no acute distress. Lungs: There were scattered rhonchi bilaterally. Cardiovascular: Heart rate is irregular. Abdomen: Soft and nontender. Extremities: Legs, there is edema but no erythema. LAB AND X-RAY: There is no new x-ray. CBC today shows a white count of 9,550, hemoglobin 8.4, platelet count 100,000. Creatinine 1.5. GFR is 34. The patient's last chest x-ray showed atelectasis but no infiltrate. ASSESSMENT AND PLAN: Patient's leukocytosis and pneumonia and bacteremia have all cleared. I have discontinued the patient's antibiotic therapy. I do not think she needs any more antibiotics. I am signing off from seeing her now but I am available to see her on a p.r.n. basis. The patient's comorbidities include being elderly, having diabetes. As mentioned above, I am available to see the patient if necessary. I am signing off for now. cc: Hector Mora MD
--- NOTE | 2017-04-30 09:31 | PROGRESS NOTE ---
DATE: 04/30/2017 SUBJECTIVE: She came in with shortness of breath, chills and malaise. She is a patient of Dr. Fatoumata Davis and Dr. Blount. A 76-year-old with multiple medical problems recently discharged from [facility] with pneumonia and bacterial infection. She had been on IV antibiotics and apparently was overseen by Dr. Blount. The patient reports she just discharged from [facility] a little over a week ago, but since she was discharged has been having chills, subjective fever, diaphoresis, cough, shortness of breath, muscle aches and overall malaise. Denied any sputum production. No real nausea or vomiting, but she had quite a bit of diarrhea. Denies lower extremity edema. No orthopnea. In the emergency room initial labs and diagnostics were consistent with sepsis. White count 16,000, tachycardia, tachypneic. She had acute kidney injury with creatinine 5.2, lactic acidosis, elevated cardiac enzymes. Chest x-ray did not show anything acute. I have ordered a CT of the chest/abdomen and pelvis, as well as renal ultrasounds, which do not show any real signs of infection. Given her constellation symptoms of sepsis, she was admitted. PAST MEDICAL HISTORY: Reviewed again. 1. Hypothyroidism. 2. Gout. 3. Hypertension. 4. Hyperlipidemia. 5. Gastroesophageal reflux disease. 6. Diabetes mellitus type 2. 7. Iron deficiency anemia followed by Dr. Olvera. 8. Depression. 9. Restless leg syndrome. 10. Skin cancer. 11. Chronic kidney disease. Admission to [facility] for pneumonia, bacterial infection. So, admitted with severe sepsis, suspected pneumonia, bacteremia, acute on chronic renal failure, elevated cardiac enzymes, severe elevated anion gap with metabolic acidosis, anemia, thrombocytopenia and some diarrhea. She has showed steady improvement, and there was talk about her going home today followed by Dr. Barrett. She feels good this morning. She feels like she could go home this morning. OBJECTIVE: Vital Signs: On physical exam today, temp 97.7 degrees, pulse 80, respirations 24 and blood pressure 139/66. HEENT: Pupils are equal and round. CVP less than 6 cm. Lungs: Clear in all lung quintanilla. Cardiovascular exam: Regular rhythm and rate without murmur or S3. Abdomen: Soft. Skin: Warm and dry. LABS: Urine output was over 2 L, white count 9550, hematocrit 24, platelet count 100,000. Sodium 139, potassium 3.5, chloride 103, bicarbonate 18, BUN 47, creatinine 1.5. Blood sugars 208, 174, 180. ASSESSMENT AND PLAN: 1. Acute on chronic obstructive pulmonary disease. We are going to need to see if she needs oxygen at home. She is on steroids and bronchodilator therapy. I think we can taper down the steroids. 2. Escherichia coli in sputum. Continue antibiotic therapy per Dr. Mora. Decide how long we need antibiotics. She is being treated for leukocytosis due to pneumonia and bacteremia. The patient is on Rocephin and daptomycin. This is day four of these, so I presume if she is going to go home we could set her up to get the antibiotics or to make a change. I think Dr. Mora wants to continue the Rocephin a few days and repeat her CAT scan. Rocephin is for the patient's presumed Escherichia coli pneumonia, and the daptomycin is for methicillin-resistant Staphylococcus aureus bacteremia. 1. Acute pulmonary embolism. Acute lower extremity deep venous thrombosis. Continue Lovenox. We will need to bridge her over to oral anticoagulant. 2. Metabolic encephalopathy, which has resolved. 3. Acute kidney injury, improved. Continue to monitor. 4. Persistent hypocalcemia. Calcium is running 5-6. Continue vitamin D replacement, as well as oral calcium replacement. 5. Diabetes mellitus type 2. Sugars remain well controlled. She is on sliding scale. 6. Metabolic acidosis, which is improved. 7. Ileus, resolved. 8. Severe protein calorie malnutrition. 9. Vitamin D deficiency. Continue vitamin D replacement. 10. Weakness, deconditioning which is improved. Continue physical therapy. DISPOSITION: The patient was looking at possibly requiring rehab on discharge. I think she is going to need to stay in the hospital a little longer with IV antibiotics. We will discuss with Dr. Mora. cc: Jay Jay Herrera MD
[2017-04-30] MEDS: 1/2 NS 1,000 ML IV SCH (09:56)
[2017-04-30] MEDS: SODIUM BICARBONATE PO SCH ×2 (09:57→22:09)
[2017-04-30] MEDS: VITAMIN B-12 SL SCH (09:57)
[2017-04-30] MEDS: TUMS EXTRA STRENGTH PO SCH ×2 (09:57→22:09)
[2017-04-30] MEDS: LOVENOX SUBQ SCH (09:57)
--- NOTE | 2017-04-30 13:22 | PROGRESS NOTE ---
DATE: 04/30/2017 SUBJECTIVE: Patient resting in bed. She has had no complaints aside from being unable to sleep last night. She denies pain. OBJECTIVE: Vital Signs: Temperature 98.2 degrees, pulse 73, respiratory rate 18, blood pressure 131/66. Intake 1.2 L. Output 950 mL. She is voiding and has been incontinent. PHYSICAL EXAMINATION: General: This is an elderly female, resting in bed. No acute distress. Awake and alert. HEENT: Normocephalic atraumatic. EMMA, conjunctivae pink. Oral mucosa moist. Neck: Supple. Trachea midline. No JVD is noted. Cardiovascular: Regular rate and rhythm. No murmur or gallop appreciated. Pulmonary: She has scattered rhonchi bilaterally. No overt wheezes noted. She does have decreased breath sounds to the right lower lobe. No increased work of breathing. Remains on O2 supplementation. Abdomen: Soft. Positive bowel sounds. Nontender. : She is voiding. She does have a brief and is somewhat incontinent. Extremities: No clubbing, cyanosis or edema. Positive cap refill. Integumentary: Skin is warm and dry without rash or lesion. She does have scattered ecchymoses noted. LAB DATA: WBC of 9.5, hemoglobin 8.4. Sodium 139, potassium 3.5, chloride 103 , CO2 18, BUN 47, creatinine 1.5, calcium 5.6. ASSESSMENT AND PLAN: 1. Acute kidney injury. Her renal function has continued to improve steadily. Creatinine is now down to 1.5 and 2.0 yesterday. She does have adequate urine output. Her electrolytes are within normal range. Bicarbonate is stable. 2. Hypercalcemia. Has remained low. Defer to primary. We will sign off at this time. Please to not hesitate to contact us if we can be of further assistance. We will request that we follow with this patient 2 weeks after discharge. Seen, data reviewed, discussed with Dilcia Benitez on 04/30/17. I agree with the above assessment and plan of care. rg Dictated by EHSAN Reza for Sudarshan Huynh MD cc: Sudarshan Huynh MD [facility]
[2017-05-01] MEDS: SOLU-MEDROL IV SCH ×3 (00:37→17:00)
[2017-05-01] MEDS: 1/2 NS 1,000 ML IV SCH ×2 (00:37→15:30)
[2017-05-01] MEDS: XOPENEX NEB INH SCH ×6 (03:35→22:40)
[2017-05-01 05:26] LABS: BASO% 0.3 % (0.0-0.8); HEMATOCRIT 24.6 % (37.0-47.0); HEMOGLOBIN 8.4 g/dL (12.0-16.0); IMM GRAN# 0.81 X1000 (0.0-0.04); IMM GRAN% 7.9 % (0.0-0.5); LYMPH# 1.27 X1000 (1.2-3.4); LYMPH% 12.4 % (20.5-51.1); MANUAL DIFF NEEDED? YES; MCH 30.8 PG (27-31); MCHC 34.1 g/dL (33-37); MCV 90.1 FL (81-99); MONO# 0.61 X1000 (0.11-0.59); MONO% 5.9 % (1.7-9.3); MPV 11.4 FL (7.4-10.4); NEUT% 73.5 % (42.2-75.2); PLT 95 X1000 (130-400); RBC 2.73 XMIL (4.2-5.4)
[2017-05-01] MEDS: HUMULIN R SUBQ SCH ×4 (06:05→21:08)
[2017-05-01] MEDS: PROTONIX IV SCH (06:05)
[2017-05-01 07:03] LABS: BANDS 4 % (0-1); LYMPHS 2 % (21-51); MONO 8 % (1-9); NRBC 1 % (0-0)
[2017-05-01] MEDS: MUCOMYST 20% INH SCH ×2 (07:36→19:09)
[2017-05-01] MEDS: VITAMIN B-12 SL SCH (09:03)
[2017-05-01] MEDS: LOVENOX SUBQ SCH (09:03)
[2017-05-01] MEDS: TUMS EXTRA STRENGTH PO SCH ×2 (09:03→21:08)
[2017-05-01] MEDS: SODIUM BICARBONATE PO SCH ×2 (09:03→21:07)
--- NOTE | 2017-05-01 09:33 | PROGRESS NOTE ---
DATE: 05/01/2017 SUBJECTIVE: Ms. Nunez is feeling better. She is breathing better. I think she would like to go home. OBJECTIVE: Vital signs: Temperature 98.4 degrees, pulse 79, respirations 20, blood pressure 130/67. Neck: CVP less than 6 cm. Lungs: Lungs still with some scattered rhonchi but expiratory phase appears to be equal with inspiratory phase. No wheezing at this point. Cardiovascular: Regular rhythm and rate without murmur or S3. Abdomen: Soft. Skin: Warm and dry. Weight 182 pounds. Urine output 2800 mL. LAB: From this morning white count 10,270, hematocrit 24, platelet count 95,000. Reviewed electrolytes from yesterday. Creatinine 1.5. Blood sugar 180, 266, 255, 274, 230. ASSESSMENT AND PLAN: 1. Acute kidney injury. Her renal function continues to improve. Creatinine going down and does have adequate urine output. Electrolytes within normal range. Bicarbonate is stable. 2. Hypocalcemia. Calcium is 5.6, and that is in the face of an albumin of 2.4. We are giving her vitamin D 34899 units p.o. q. week and she is getting some calcium carbonate 750 mg p.o. b.i.d. 3. Acute pulmonary embolism and deep venous thrombosis. Patient is presently on anticoagulation with Lovenox 60 mg subcutaneously q.24 hours and need to decide on p.o. anticoagulant. Extremity venous study showed acute deep venous thrombosis, small left posterior tibial vein from the mid to distal calf. V/Q scan with high probability. Will discuss p.o. anticoagulation, but she will need to be on anticoagulation I think for probably a year. Will will see if she is eligible for any of the Factor 10 inhibitors or whether we need to use Coumadin. 4. Metabolic encephalopathy, resolved. 5. Ileus, resolved. 6. Diabetes mellitus type 2. Sugars under good control. 7. Protein calorie malnutrition. Continue to encourage p.o. intake. cc: Jay Jay Herrera MD
[2017-05-01] MEDS: DILAUDID IV PRN (19:49)
[2017-05-01] MEDS: COUMADIN PO SCH (21:07)
[2017-05-02] MEDS: SOLU-MEDROL IV SCH ×2 (00:33→12:47)
[2017-05-02] MEDS: 1/2 NS 1,000 ML IV SCH ×2 (00:33→15:13)
[2017-05-02] MEDS: XOPENEX NEB INH SCH ×6 (03:39→23:20)
[2017-05-02] MEDS: DILAUDID IV PRN (04:55)
[2017-05-02 05:27] LABS: INR 1.23; PROTIME 13.1 Seconds (9.2-11.7)
[2017-05-02] MEDS: PROTONIX IV SCH (06:31)
[2017-05-02] MEDS: HUMULIN R SUBQ SCH ×4 (06:31→20:33)
[2017-05-02] MEDS: MUCOMYST 20% INH SCH ×2 (07:44→19:27)
[2017-05-02] MEDS: ZOFRAN IV PRN (08:50)
--- NOTE | 2017-05-02 09:02 | PROGRESS NOTE ---
DATE: 05/02/2017 SUBJECTIVE: She is feeling better. She wants to go home. Remains afebrile. OBJECTIVE: Vital signs: Temperature 98.1 degrees, pulse 70, respirations 21, blood pressure 124/75. HEENT: Pupils are equal and round. Lungs: Clear in all lung quintanilla. Cardiovascular: Regular rhythm and rate without murmur or S3. Abdomen: Soft. Skin: Is warm and dry. Urine output 2200 mL. Blood sugar 230, 235, 244. White count yesterday 10,270, hematocrit was 24, platelet count 95,000. Blood sugars 235, 173, and 144. ASSESSMENT AND PLAN: 1. Acute kidney injury. Renal function continued to improve. Urine output is doing better. Check her creatinine again today. Her urine output is good. 2. Hypocalcemia. Continue to give vitamin D and supplement calcium. 3. Acute pulmonary embolism and deep venous thrombosis. She is on Lovenox and have started her on Coumadin. We need to get her prothrombin time close to 2. 4. Metabolic encephalopathy, resolved. 5. Ileus, resolved. 6. Diabetes mellitus type 2. Sugars under good control. cc: Jay Jay Herrera MD
[2017-05-02] MEDS: SODIUM BICARBONATE PO SCH ×2 (09:45→20:30)
[2017-05-02] MEDS: VITAMIN B-12 SL SCH (09:45)
[2017-05-02] MEDS: TUMS EXTRA STRENGTH PO SCH ×2 (09:45→20:31)
[2017-05-02] MEDS: LOVENOX SUBQ SCH (09:45)
[2017-05-02 09:48] LABS: CALCIUM 5.4 mg/dL (8.8-10.2); MAGNESIUM 0.8 mg/dL (1.5-2.7)
[2017-05-02 09:59] LABS: ALLEN TEST YES; BLOOD TYPE ARTERIAL; DRAW SITE L RADIAL; METHB 1.1 % (0.0-1.5); O2(CT) 13.1 mL/dL (15.0-23.0); PCO2(98.6) 30 mmHg (35-45); PO2(98.6) 80 mmHg (60-100); SAMPLE BLOOD; SAO2 98.3 % (95.0-100.0); THB 9.6 g/dL (11.5-17.4); pH(98.6) 7.49 (7.35-7.45)
[2017-05-02 10:00] LABS: MODALITY ROOM AIR
--- NOTE | 2017-05-02 10:09 | PROGRESS NOTE ---
DATE: 05/02/2017 ADDENDUM: ASSESSMENT AND PLAN: 1. Acute on chronic kidney injury, which is improved. Urine output is improved. We will check her serum creatinine today and tomorrow. Hopefully, she can go home tomorrow. 2. Hypocalcemia, aware. She is given vitamin D supplement. We are giving calcium carbonate. 3. Pulmonary embolism and deep venous thrombosis. I am hoping she is eligible for Xarelto. She is presently still on the Lovenox. We will see if we can get that arranged. 4. Metabolic encephalopathy, which resolved. 5. Ileus, resolved. 6. Diabetes mellitus type 2. Sugars under good control. 7. Protein calorie malnutrition. She is eating much better. 8. History of atrial fibrillation. Note; we have started her on Coumadin 7.5 mg at bedtime. Indicates she is not eligible for Xarelto. My suspicion is she may not be. Will taper down the prednisone further. We will stop her Protonix. She is getting sodium bicarbonate. cc: Jay Jay Herrera MD
[2017-05-02] MEDS ORDERED: MAGNESIUM SULFATE 2 GM/S.W.I. 2 GM/50 ML IVPB IV ONE (15:00)
[2017-05-02] MEDS: MAG-OX PO SCH ×2 (15:13→20:31)
[2017-05-02] MEDS: COUMADIN PO SCH (20:31)
[2017-05-03] MEDS: SOLU-MEDROL IV SCH (02:13)
[2017-05-03] MEDS: 1/2 NS 1,000 ML IV SCH (06:00)
[2017-05-03] MEDS: HUMULIN R SUBQ SCH (06:00)
[2017-05-03 06:45] LABS: AGAP 13; BUN 26 mg/dL (8-22); CALCIUM 5.1 mg/dL (8.8-10.2); CHLORIDE 100 mmol/L (98-107); COSMO 281; POTASSIUM 3.8 mmol/L (3.5-5.1); SODIUM 136 mmol/L (136-145); TCO2 23 mmol/L (25-35)
[2017-05-03 07:33] LABS: INR 1.38; PROTIME 14.8 Seconds (9.2-11.7)
[2017-05-03] MEDS: MUCOMYST 20% INH SCH (07:38)
[2017-05-03] MEDS: XOPENEX NEB INH SCH (07:38)
[2017-05-03 08:42] VITALS: BP 148/92
[2017-05-03] MEDS: SODIUM BICARBONATE PO SCH (09:12)
[2017-05-03] MEDS: MAG-OX PO SCH (09:12)
[2017-05-03] MEDS: VITAMIN B-12 SL SCH (09:12)
[2017-05-03] MEDS: TUMS EXTRA STRENGTH PO SCH (09:12)
[2017-05-03] MEDS: LOVENOX SUBQ SCH (09:13)
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
--- NOTE | 2017-05-03 10:29 | PROGRESS NOTE ---
DATE: 05/03/2017 ADDENDUM: Note her insurance has approved for Xarelto. We will send her home on Xarelto, and I think we would just put her on 20 mg daily instead of doing a loading dose of 15 twice a day. She will need to stay on that probably for a year. Want her to make sure she gets follow up. Her primary care physicians, Dr. Blount and Dr. Fatoumata Davis. cc: MD Fatoumata Miramontes MD Nixon Gillespie, MD
== END 2017-05-03 10:52 | disposition home health service (06) ==
LOC: SUATTDRO → ED 11:13 → ICU 14:21 → SUATTDRO 14:21 → 3N 04-25 11:20 → 3S 04-26 17:50
PROVIDERS: ATTEND Emergency Medicine

== ENCOUNTER 2019-01-10 11:55 | Inpatient (IN) ==
[2019-01-10 13:52] LABS: BASO# 0.09 X1000 (0.0-0.2); BASO% 0.6 % (0.0-0.8); EOS# 0.53 X1000 (0.0-0.7); EOS% 3.3 % (0.0-10.0); HEMATOCRIT 20.5 % (37.0-47.0); HEMOGLOBIN 6.7 g/dL (12.0-16.0); IMM GRAN# 0.22 X1000 (0.0-0.04); IMM GRAN% 1.4 % (0.0-0.5); LYMPH# 3.53 X1000 (1.2-3.4); LYMPH% 21.9 % (20.5-51.1); MCH 33.2 PG (27-31); MCHC 32.7 g/dL (33-37); MCV 101.5 FL (81-99); MONO# 1.05 X1000 (0.11-0.59); MONO% 6.5 % (1.7-9.3); MPV 10.7 FL (7.4-10.4); NEUT# 10.72 X1000 (1.4-6.5); NEUT% 66.3 % (42.2-75.2); PLT 284 X1000 (130-400); RBC 2.02 XMIL (4.2-5.4); RDW 14.6 % (11.5-14.5); WBC 16.14 X1000 (4.8-10.8)
[2019-01-10 14:36] LABS: ALBUMIN 3.3 g/dL (3.5-5.0); CALCIUM 8.2 mg/dL (8.8-10.2); CREATININE 2.8 mg/dL (0.5-0.9); POTASSIUM 3.7 mmol/L (3.5-5.1); TOTAL BILIRUBIN 0.8 mg/dL (0.20-1.00); TOTAL PROTEIN 6.8 g/dL (6.3-8.3)
[2019-01-10 14:48] LABS: OCCULT BLOOD 1 POSITIVE (NEGATIVE)
[2019-01-10 14:53] LABS: PROTIME 90.6 Seconds (11.0-16.0)
[2019-01-10 14:56] LABS: INR 11.01
[2019-01-10] MEDS ORDERED: VITAMIN K SUBQ ONE ×2 (15:21→19:02)
[2019-01-10] MEDS ORDERED: PROTONIX 80 MG in NS 80 ML IV SCH (15:30)
[2019-01-10 15:45] LABS: IRON SATURATION 54 %; RETIC% 5.59 % (0.8-2.1); RETIC-HE 30.5 PG (28.2-36.6); TIBC 168 ug/dL; TOTAL IRON 90 ug/dL (49-151); UNBOUND IRON 78 ug/dL (112-346)
--- NOTE | 2019-01-10 16:09 | HISTORY AND PHYSICAL ---
PRIMARY CARE PHYSICIAN: Dr. Blount. CHIEF COMPLAINT: Of bilateral upper extremity ecchymosis that has worsened over the last 4 days. HISTORY OF PRESENTING ILLNESS: This is a 78-year-old female who presents to [facility] ER with complaints of ecchymosis to her bilateral upper extremities. She is noted to have ecchymosis from right above her elbows all the way down to her wrist. States that she has been on Coumadin for a couple of years for a PE, was recently taken off of it about 2 weeks ago and then was started back on it this past week. She was in the emergency room according to our records on 12/15/2018 with complaints of some abdominal pain with constipation and diarrhea and had an hemoglobin and hematocrit at that time on 12/15/2018 of 9.3 and 29.2. She was found to be a little dehydrated and was discharged home. Today her hemoglobin and hematocrit is 6.7 and 20.5. She had a stool positive for occult blood. Her PT and INR were 90.6 and 11.01 with a PTT greater than 200. Her creatinine is 2.8, which is a little above her baseline. Looks like in 2017 she had a creatinine of 1 to 1.5 so she is going to be admitted to the [facility] for further evaluation and treatment. PAST MEDICAL HISTORY: Hypertension, hyperlipidemia, pulmonary emboli and diabetes. PAST SURGICAL HISTORY: Of a hysterectomy, appendectomy and cholecystectomy. FAMILY HISTORY: Reviewed and noncontributory. SOCIAL HISTORY: She currently lives with family. Denies any tobacco, alcohol or illicit drug use. ALLERGIES: To indomethacin. HOME MEDICATIONS: A current list will need to be obtained and restarted as appropriate. We would of course hold any anticoagulants and we will have nursing to update and confirm all home medications. LABORATORY DATA: Showed a white blood cell count of 16.14, hemoglobin 6.7, hematocrit 20.5, platelets 284,000, PT and INR of 90.6 and 11.0 with a PTT of greater than 200. Sodium 136, potassium 3.7, chloride 96, BUN of 54, creatinine 2.8, glucose 141. Stool for occult blood was positive. REVIEW OF SYSTEMS: She denied any fever, chills, blurred vision. She was positive for some dizziness and shortness of breath, constipation versus some diarrhea. Denied any chest pain, denied any abdominal pain at this time. No nausea, vomiting or burning or hurting with urination. She is noted to have had some black tarry stools. PHYSICAL EXAMINATION: On arrival she had a temperature of 97.6 degrees, pulse 70, respirations 16, blood pressure was 171/74, saturating 97% on room air. GENERAL: This is an a 78-year-old female who is lying in the bed and answers questions appropriately. HEENT: Normocephalic, atraumatic. Normal ENT inspection. Oropharynx and nares are clear. Pupils are equal, round, reactive to light and accommodation. Extraocular movements are intact. NECK: Normal inspection, normal range of motion. LUNGS: Clear to auscultation bilaterally with equal lung expansion and chest wall movement. HEART: With regular rate and rhythm. No murmurs, rubs, or gallops. ABDOMEN: Soft, nontender, nondistended. Bowel sounds are present x4 quadrants. EXTREMITIES: She has 4/5 strength x4 extremities and again she is noted to have ecchymosis to her bilateral upper extremities that begins around her elbows and all the way down to her wrist with tenderness to touch. NEUROLOGICAL: The cranial nerves 2-12 appear grossly intact. ASSESSMENT: 1. Coagulopathy secondary to Coumadin use. 2. Gastrointestinal bleed. 3. Anemia secondary to gastrointestinal bleed secondary to anticoagulation use. 4. An acute kidney injury. PLAN: She will be admitted to the [facility], placed on telemetry, held NPO. We will consult GI. We will give her 1 unit of packed red blood cells and 2 units of fresh frozen plasma. She is receiving vitamin K 10 mg subcu x1 now. Placed on a Protonix drip. We will apply SCDs. Recheck CBC, CMP, magnesium, PT with INR and PTT and a TSH level in the a.m. Will need again for nursing to update and confirm home medications, of course we would hold any anticoagulation but will restart after we review her home medication list as appropriate. Further orders after being seen by attending and by the senior sustainability consultant. Dictated by EHSAN Valero for Erich Aguero MD cc: EHSAN Valero MD Dr. Gillespie
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
[2019-01-10] MEDS ORDERED: NS 1,000 ML ONE (19:32)
[2019-01-10 21:06] LABS: INR 3.26; PROTIME 35.5 Seconds (11.0-16.0)
[2019-01-10 22:19] LABS: FERRITIN 1396 ng/mL (13-150)
[2019-01-11] MEDS: PROTONIX 80 MG in NS 80 ML IV SCH ×3 (00:06→21:07)
[2019-01-11 05:32] LABS: BASO# 0.07 X1000 (0.0-0.2); BASO% 0.5 % (0.0-0.8); EOS# 0.46 X1000 (0.0-0.7); EOS% 3.4 % (0.0-10.0); HEMATOCRIT 29.6 % (37.0-47.0); HEMOGLOBIN 9.6 g/dL (12.0-16.0); IMM GRAN# 0.31 X1000 (0.0-0.04); IMM GRAN% 2.3 % (0.0-0.5); LYMPH# 2.51 X1000 (1.2-3.4); LYMPH% 18.5 % (20.5-51.1); MCH 31.5 PG (27-31); MCHC 32.4 g/dL (33-37); MONO# 0.83 X1000 (0.11-0.59); MONO% 6.1 % (1.7-9.3); MPV 10.7 FL (7.4-10.4); NEUT% 69.2 % (42.2-75.2); PLT 237 X1000 (130-400); RBC 3.05 XMIL (4.2-5.4); RDW 16.2 % (11.5-14.5); WBC 13.58 X1000 (4.8-10.8)
[2019-01-11 05:48] LABS: ALBUMIN 3.2 g/dL (3.5-5.0); CALCIUM 8.8 mg/dL (8.8-10.2); CREATININE 2.1 mg/dL (0.5-0.9); INR 1.92; MAGNESIUM 1.4 mg/dL (1.5-2.7); POTASSIUM 3.6 mmol/L (3.5-5.1); PROTIME 23.4 Seconds (11.0-16.0); TOTAL BILIRUBIN 1.71 mg/dL (0.20-1.00); TOTAL PROTEIN 6.4 g/dL (6.3-8.3)
[2019-01-11] MEDS ORDERED: VITAMIN K SUBQ ONE (09:00)
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
[2019-01-11] MEDS: BYSTOLIC PO SCH (10:17)
[2019-01-11] MEDS: NS 1,000 ML IV SCH (10:18)
[2019-01-11 13:44] LABS: HEMATOCRIT 27.7 % (37.0-47.0)
[2019-01-11] MEDS: DESYREL PO SCH (21:05)
[2019-01-11 21:12] LABS: HEMATOCRIT 27.1 % (37.0-47.0); HEMOGLOBIN 8.7 g/dL (12.0-16.0)
[2019-01-12] MEDS: NS 1,000 ML IV SCH ×2 (05:53→22:13)
[2019-01-12] MEDS: PROTONIX 80 MG in NS 80 ML IV SCH ×2 (05:53→06:36)
[2019-01-12] MEDS: SYNTHROID PO SCH ×2 (05:53→06:36)
[2019-01-12 07:46] LABS: BASO# 0.07 X1000 (0.0-0.2); BASO% 0.5 % (0.0-0.8); EOS# 0.51 X1000 (0.0-0.7); EOS% 3.7 % (0.0-10.0); HEMATOCRIT 28.6 % (37.0-47.0); HEMOGLOBIN 9.1 g/dL (12.0-16.0); IMM GRAN# 0.34 X1000 (0.0-0.04); IMM GRAN% 2.5 % (0.0-0.5); LYMPH# 2.71 X1000 (1.2-3.4); LYMPH% 19.8 % (20.5-51.1); MCH 31.6 PG (27-31); MCHC 31.8 g/dL (33-37); MCV 99.3 FL (81-99); MONO% 7.3 % (1.7-9.3); MPV 10.6 FL (7.4-10.4); NEUT# 9.03 X1000 (1.4-6.5); NEUT% 66.2 % (42.2-75.2); PLT 261 X1000 (130-400); RBC 2.88 XMIL (4.2-5.4); RDW 17.2 % (11.5-14.5); WBC 13.66 X1000 (4.8-10.8)
[2019-01-12 07:59] LABS: ALBUMIN 3.1 g/dL (3.5-5.0); CALCIUM 8.4 mg/dL (8.8-10.2); CREATININE 1.6 mg/dL (0.5-0.9); POTASSIUM 3.6 mmol/L (3.5-5.1); TOTAL BILIRUBIN 1.69 mg/dL (0.20-1.00); TOTAL PROTEIN 6.3 g/dL (6.3-8.3)
[2019-01-12] MEDS: BYSTOLIC PO SCH (09:04)
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
[2019-01-12 10:53] LABS: INR 1.21; PROTIME 16.2 Seconds (11.0-16.0)
[2019-01-12] MEDS ORDERED: PROTONIX IV SCH (11:30)
[2019-01-12] MEDS ORDERED: SODIUM CHLORIDE 0.9% INJ SCH (11:30)
--- NOTE | 2019-01-12 11:50 | PROGRESS NOTE ---
DATE: 01/12/2019 SUBJECTIVE: This morning, Ms. Nunez refers to be doing a lot better. She denies any rectal bleed. The was at the bedside at the time of the encounter. OBJECTIVE: Vital Signs: Blood pressure is 186/94, pulse is 79, respirations are 20, temperature is 98.2 degrees. General Examination: Ms. Nunez is a 78-year-old, female. She is in bed. She is not in any cardiopulmonary distress. HEENT: Mucosa is pink and moist. Anicteric. Acyanotic. Neck: Supple. Respiratory System: There is good air entry bilaterally. No crepitations. No rhonchi. Cardiovascular System: Regular rate and rhythm. No murmurs, no rubs, no gallops. GI: Abdomen is soft, nontender. Bowel sounds present. There is no hepatosplenomegaly. 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 There is no focal neurological deficit. Musculoskeletal: There are some extensive ecchymotic changes on both upper extremities but it is looking much better. Laboratory Data: WBC is 13.6, hemoglobin is 9.1, platelet count of 261,000. INR is down to 1.21. Chemistry is also reviewed. Creatinine is down to 1.6. ASSESSMENT: 1. Supratherapeutic INR secondary to Coumadin therapy. This has been reversed with fresh frozen plasma and vitamin K therapy. INR is back to 1.21 today. 2. Gastrointestinal bleed, likely due to Coumadin induced gastrointestinal mucosal bleeding. The patient is pending esophagogastroduodenoscopy tomorrow as per gastroenterology notes. 3. Anemia secondary to acute gastrointestinal bleed from over-anticoagulation from Coumadin. The patient is status post two units of packed red blood cell transfusion and two units of fresh frozen plasma. Hemoglobin this morning is 9.1 which is fairly stabilized after the initial transfusion. 4. Coumadin therapy at home. I spoke extensively with Dr. Blount this morning. The reason why Ms. Nunez is on anticoagulation seems to be venous thromboembolisms (deep venous thrombosis and pulmonary embolism). It appears, however, this has been two years ago. According to Dr. Blount, the patient is probably not very compliant with the regimen at home, unsure because of her underlying Alzheimer's. He thinks that Ms. Nunez might have taken a little too much of her Coumadin, that most times at home, he is even having a hard time getting a therapeutic level on the INR. In any case, we discussed the indication for the Coumadin therapy and he said he will look into that once the patient gets discharged. When the patient is ready for discharge, however, the patient will not be on Coumadin. 5. Hypothyroidism. The patient is on Synthroid. 6. Hypertension. This is uncontrolled. The patient has been restarted back on her home medication (Bystolic). I have also added amlodipine for better blood pressure control. 7. Acute on chronic renal failure. Creatinine is on a downward trend. We are going to continue with the intravenous fluids. PLAN: In general, I think Ms. Nunez is doing a lot better today. We are going to restart her home medications. I have also added amlodipine for better blood pressure control. I have discussed extensively her care with her primary care doctor (Dr. Blount) this morning. Ms. Nunez is pending EGD tomorrow morning. We will get physical therapy also to start working with her. cc: Damian Carrillo MD
[2019-01-12] MEDS: NORVASC PO SCH ×2 (11:53→22:18)
--- NOTE | 2019-01-12 15:50 | Diag Imaging Result Doc PS360 ---
US ABDOMEN-COMPLETE - 01/12/2019 INDICATION: elevated liver enzymes COMPARISON: Renal ultrasound 04/22/2017 FINDINGS: The gallbladder is absent. The liver slightly hyperechoic compatible with mild fatty change. No liver masses or biliary dilation. Common bile duct measures 5 mm. The pancreas and spleen are normal. The kidneys are atrophic. The right kidney measures 7.8 x 3 x 4.1 cm. The left kidney measures 7.6 x 3.3 x 4.7 cm. Aorta, IVC, and main portal vein are patent. IMPRESSION: 1. Mild fatty change of the liver. 2. Bilateral renal atrophy. Electronically signed by Panfilo Edouard 01/12/2019 3:47 PM
[2019-01-12] MEDS: DESYREL PO SCH (22:18)
[2019-01-12] MEDS: ICAR-C PO SCH (22:18)
[2019-01-13] MEDS: SYNTHROID PO SCH (06:05)
[2019-01-13] MEDS ORDERED: DIPRIVAN 1% ONE (07:18)
[2019-01-13] MEDS ORDERED: XYLOCAINE-MPF 2% ONE (07:18)
[2019-01-13 07:27] LABS: BASO# 0.08 X1000 (0.0-0.2); BASO% 0.6 % (0.0-0.8); EOS# 0.64 X1000 (0.0-0.7); EOS% 4.6 % (0.0-10.0); HEMATOCRIT 29.9 % (37.0-47.0); HEMOGLOBIN 9.6 g/dL (12.0-16.0); IMM GRAN# 0.39 X1000 (0.0-0.04); IMM GRAN% 2.8 % (0.0-0.5); LYMPH# 3.24 X1000 (1.2-3.4); LYMPH% 23.4 % (20.5-51.1); MCH 32.2 PG (27-31); MCHC 32.1 g/dL (33-37); MCV 100.3 FL (81-99); MONO# 1.05 X1000 (0.11-0.59); MONO% 7.6 % (1.7-9.3); NEUT# 8.43 X1000 (1.4-6.5); PLT 272 X1000 (130-400); RBC 2.98 XMIL (4.2-5.4); RDW 17.1 % (11.5-14.5); WBC 13.83 X1000 (4.8-10.8)
[2019-01-13 07:38] LABS: ALBUMIN 3.2 g/dL (3.5-5.0); CALCIUM 8.1 mg/dL (8.8-10.2); CREATININE 1.4 mg/dL (0.5-0.9); PHOSPHORUS 1.8 mg/dL (2.7-4.5); POTASSIUM 3.5 mmol/L (3.5-5.1)
--- NOTE | 2019-01-13 08:44 | OPERATIVE NOTE ---
PROCEDURE DATE: 01/13/2019 PROCEDURE: Upper GI endoscopy. PROVIDER: Yovanny Sloiman MD. INDICATIONS: GI bleeding, anemia. MEDICATIONS: Monitored anesthesia care. DESCRIPTION OF PROCEDURE: Prior to procedure a history and physical was performed. The patient medications and allergies were reviewed. The patient's tolerance to previous anesthesia was also reviewed. The risks and benefits of the procedure and the sedation options and risks were discussed with the patient. All questions were answered and informed consent was obtained. After reviewing the risks and benefits, the patient was deemed in satisfactory condition to undergo the procedure. The endoscope was passed under direct visualization. Throughout the procedure, the patient's blood pressure, pulse and oxygen saturations were monitored continuously. The endoscope was introduced through the mouth and advanced to the second part of the duodenum. The upper GI endoscopy was accomplished without difficulty. The patient tolerated the procedure well. COMPLICATIONS: No immediate complications. ESTIMATED BLOOD LOSS: None. FINDINGS: The esophagus revealed a small hiatal hernia. Stomach was normal on forward view and retroflexion. The bulb and second portion of duodenum were normal. IMPRESSION: Hiatal hernia. RECOMMENDATIONS: - Resume diet. - Transition IV PPI to once daily orally. - Recommend patient have outpatient colonoscopy given her chronic anemia without evidence of iron deficiency. Please call with questions. [facility]
[2019-01-13] MEDS ORDERED: PATIENT'S OWN MED PO SCH (09:00)
[2019-01-13] MEDS ORDERED: CENTRUM SILVER PO SCH (09:00)
[2019-01-13] MEDS ORDERED: ZYLOPRIM PO SCH (09:00)
[2019-01-13] MEDS ORDERED: BYSTOLIC PO SCH (09:00)
[2019-01-13] MEDS ORDERED: FERROUS SULFATE PO SCH (09:00)
[2019-01-13] MEDS: ICAR-C PO SCH (09:20)
[2019-01-13] MEDS: NORVASC PO SCH (09:21)
[2019-01-13 12:38] LABS: HEPATITIS PROFILE ACUTE SEE COMMENTS
[2019-01-13 13:17] VITALS: BP 163/73
--- NOTE | 2019-01-13 14:48 | DISCHARGE SUMMARY ---
ADMISSION DATE: 01/10/2019 DISCHARGE DATE: 01/13/2019 DISPOSITION: Home. FOLLOWUP: 1. Dr. Blount. 2. Dr. Soliman. CONSULTATION DURING THIS ADMISSION: GI was consulted, patient was seen by Dr. Tena. INVASIVE PROCEDURES DONE DURING THIS ADMISSION: EGD was done which showed a small hiatal hernia but no obvious source of bleed. IMAGING STUDIES OF SIGNIFICANCE: Ultrasound of the abdomen showed mild fatty change of the liver, bilateral renal atrophy. ASSESSMENT AT THE TIME OF ADMISSION: 1. Coagulopathy secondary to Coumadin use. 2. Gastrointestinal bleed. 3. Anemia secondary to gastrointestinal bleed. 4. Acute kidney injury. DIAGNOSIS AT THE TIME OF DISCHARGE: 1. Supratherapeutic INR secondary to Coumadin therapy. This was reversed with FFP and vitamin K therapy. 2. Gastrointestinal bleed secondary to Coumadin-induced gastrointestinal mucosal bleeding. EGD was unremarkable. 3. Anemia secondary to gastrointestinal bleed, improved. 4. Coumadin therapy at home. Patient will follow up with Dr. Blount at a later date to assess initiation of this. 5. Hypothyroidism. Patient is on Synthroid. 6. Hypertension, controlled. 7. Acute on chronic renal failure. Creatinine is back to baseline. DISCHARGE MEDICATIONS: 1. Iron sulfate 325 daily. 2. Allopurinol 300 mg daily. 3. Levothyroxine 88 mcg daily. 4. Ropinirole 0.5 p.o. daily. 5. BuSpar 10 mg daily. 6. Vitamin D. 7. Bystolic 20 mg daily. 8. Amlodipine 10 mg daily. 9. Pantoprazole 40 mg daily. PRESENTING COMPLAINT: Bilateral upper extremity ecchymosis. HISTORY OF PRESENTING COMPLAINT: Ms. 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 She is currently on Coumadin anticoagulation which, according to her primary care doctor, he has been having hard time to get the INR therapeutic. The patient came to the emergency department because she has been having ecchymotic lesions on the upper extremities. The day prior to admission, she did have rectal bleed. Upon presenting to the emergency department, the patient's lab work revealed hemoglobin was 6.7. She was subsequently admitted to [facility], but then later transferred to [facility] for a higher level of care. HOSPITAL COURSE: Ms Nunez was admitted to the medical floor. Anticoagulation was reversed with FFP transfusion as well as vitamin K. She was also given 2 units of PRBC and hemoglobin became stabilized. The patient's INR got also corrected and she did not have any more rectal bleed. GI was consulted. Patient was seen by Dr. Tena. A decision for EGD was made and this was done which did not show any remarkable findings. Ms Nunez has been relatively stable. Denies any bleeding. She is tolerating her diet, is tolerating her medications and she has had other bowel movements here in the hospital, and there is not any more blood. She is not symptomatic of any anemia or intravascular depletion. She has been up to a chair and she is doing good. She is therefore being discharged in stable condition. I reached out to her primary care doctor, Dr. Blount, myself and he will look into the need for further anticoagulation in her at a later date. This morning, her vitals, blood pressure is 163/72, pulse of 75, respiration is 18, temperature is 98.7 degrees. The patient was saturating 98% on room air. Ms Nunez is therefore in stable condition for discharge today. All the discharge instructions discussed with her, the was at the bedside at the time of the encounter. TIME SPENT: For discharge is 37 minutes. cc: MD Dr. Mine Bhandari MD
[2019-01-14] MEDS ORDERED: PROTONIX PO SCH (07:00)
--- NOTE | 2019-01-16 08:20 | PROVIDER DOCUMENTATION ---
This chart was entered by Maya Martinez Scribe, acting as scribe for Yovanny Sanches MD. HPI-General Adult - General Chief Complaint: General Adult Stated Complaint: CHECK INR Time Seen by Provider: 01/10/19 13:00 Source: patient, family Allergies/Adverse Reactions: Patient Allergies Allergy/AdvReac Type Severity Reaction Status Date / Time indomethacin [From Indocin] Allergy Severe NAUSEA/VOMI Verified 12/15/18 17:35 TING indomethacin sodium * Allergy Severe NAUSEA/VOMI Verified 12/15/18 17:35 [From Indocin] TING Home Medications: Home Medication List Medication Instructions Recorded Confirmed Last Taken Type Allopurinol 300 mg PO DAILY 06/25/15 12/15/18 12/15/18 History Ferrous Sulfate 325 mg PO DAILY 06/25/15 12/15/18 12/15/18 History Levothyroxine [Synthroid] 88 microgm PO DAILY 06/25/15 12/15/18 12/15/18 History Buspirone [Buspar] 10 mg PO DAILY 04/22/17 12/15/18 12/15/18 History Iron Fum,Ps/Folic/Bcomp,C No.9 1 each PO DAILY 04/22/17 12/15/18 12/15/18 History [Folivane-Plus Capsule] Ropinirole [Requip] 0.5 mg PO DAILY 04/22/17 12/15/18 12/15/18 History Ergocalciferol (Vitamin D2) 50,000 unit PO Q7D #12 capsule 05/03/17 12/15/18 Unknown Rx [Vitamin D] Sodium Bicarbonate 650 mg PO BID #60 tablet 05/03/17 12/15/18 12/15/18 Rx Amoxicillin 500 mg PO DAILY 12/15/18 12/15/18 12/15/18 History Furosemide 20 mg PO DAILY 12/15/18 12/15/18 12/15/18 History Loperamide HCl [Loperamide] 2 mg PO Q4H PRN 10 Days #20 tab 12/15/18 Unknown Rx Nebivolol HCl [Bystolic] 20 mg PO DAILY 12/15/18 12/15/18 12/15/18 History Omeprazole 40 mg PO DAILY 12/15/18 12/15/18 12/15/18 History Trazodone HCl 100 mg PO DAILY 12/15/18 12/15/18 12/14/18 History - History of Present Illness -Gen Adult Nature of Presenting Problems: 78yof with hx of diabetes, HTN, hyperlipidemia, and hypothyroidism c/o ecchymosis of RUE/LUE for 4 days. She reports she takes warfarin 5mg. She denies fever, chills, nausea, vomiting, diarrhea, cp, and sob. The patient's family members are at bedside. Location of Pain/Injury: reports: upper extremity (RUE/LUE) Pain Radiation: reports: no radiation Quality of Pain: reports: none Severity: reports: mild Onset/Duration: reports: 4 days ago Timing: reports: still present, constant Context/Activities at Onset: reports: none Modifying Factors: improves with: nothing Associated Symptoms: denies: chest pain, fever/chills, nausea, shortness of breath, vomiting Similar Symptoms Previously?: No Recently seen or treated by another doctor?: No Review of Systems - Adult - REVIEW OF SYSTEMS - ADULT Constitutional: denies: chills, fever Eyes: denies: discharge, dry eyes Ears, Nose, Mouth & Throat: denies: ear discharge, ear pain Cardiovascular: denies: chest pain, palpitations Respiratory: denies: cough, shortness of breath Gastrointestinal: denies: abdominal pain, diarrhea, nausea, vomiting Genitourinary: denies: dysuria, hematuria Musculoskeletal: denies: back pain, muscle aches, muscle weakness Integumentary: reports: other (bruising RUE/LUE). denies: itching Neurological: denies: dizziness/vertigo, headache/migraines Psychiatric: reports: no symptoms reported Endocrine: reports: no symptoms reported Hematologic/Lymphatic: reports: no symptoms reported Allergic/Immunologic: reports: no symptoms reported All Other Systems: Reviewed and Negative Past History - Adult - PAST MEDICAL HISTORY-ADULT Review of Records: reports: Old Records Reviewed, Nursing Assessment Review, Medications Reviewed Major Childhood Illnesses: reports: denies history Cardiovascular: reports: HTN, hyperlipidemia Respiratory: reports: denies history Gastrointestinal: reports: denies history Obstetrical/Gynecological: reports: denies history Genitourinary: reports: denies history Musculoskeletal: reports: denies history Neurological: reports: denies history Endocrine/Immune: reports: Diabetes Other Conditions: reports: denies history - PRIOR SURGERIES/PROCEDURES Surgical/Procedure History: reports: hysterectomy, appendectomy, cholecystectomy - IMMUNIZATION STATUS Childhood Immunizations: See Nurse Assessment Flu Vaccine: See Nurse Assessment - FAMILY HISTORY Family History: reviewed, not pertinent - SOCIAL HISTORY Smoking: non-smoker Substance Use: denies Living Situation: family Physical Exam-General - PHYSICAL EXAM-ADULT Initial Vital Signs Reviewed: Yes - CONSTITUTIONAL General Appearance: alert, no apparent distress - EYES Eyes: PERRL/EOMI, pink conjunctivae - NECK Neck: non-tender, supple - RESPIRATORY Respiratory: lungs clear, normal breath sounds - CARDIOVASCULAR Cardiovascular: regular rate, rhythm, no murmur - GENITOURINARY Rectal Exam: black stool. negative: mass - MUSCULOSKELETAL Extremity: normal range of motion, non-tender, normal inspection, no pedal edema - SKIN Integumentary: normal color, warm/dry, ecchymosis (RUE/LUE) - NEUROLOGIC Neurologic: grossly normal, no motor/sensory deficits - PSYCHIATRIC Psych/Mental Status: normal mood/affect, normal thought content, normal thought process, oriented x 3 Progress - PLAN OF CARE/RESULTS Progress/Plan/Lab Results: Vital Signs - 8 hr 01/10/19 12:10 Temperature 97.6 F Pulse Rate 70 Respiratory Rate 16 Blood Pressure 171/74 O2 Sat by Pulse Oximetry 97 Laboratory Results - last 24 hr 01/10/19 01/10/19 13:28 13:28 WBC 16.14 H RBC 2.02 L Hgb 6.7 L Hct 20.5 L MCV 101.5 H MCH 33.2 H MCHC 32.7 L RDW Std Deviation 14.6 H Plt Count 284 MPV 10.7 H Immature Gran % (Auto) 1.4 H Neut % (Auto) 66.3 Lymph % (Auto) 21.9 [place] % (Auto) 6.5 Eos % (Auto) 3.3 Baso % (Auto) 0.6 Immature Gran # (Auto) 0.22 H Neut # (Auto) 10.72 H Lymph # (Auto) 3.53 H [place] # (Auto) 1.05 H Eos # (Auto) 0.53 Baso # (Auto) 0.09 Estimated GFR/1.73 m2 16 Orders Category Date Time Status CBC WITH ELECTRONIC DIFF [HEME] Stat Lab 01/10/19 13:28 Completed COMPREHENSIVE METABOLIC PANEL [CHEM] Stat Lab 01/10/19 13:28 Results OCCULT BLOOD DIAG 1-[address] Stat Lab 01/10/19 14:07 Ordered PROTIME WITH INR [COAG] Stat Lab 01/10/19 13:28 Received PTT [COAG] Stat Lab 01/10/19 13:28 Received Result Diagrams: 01/10/19 13:28 01/10/19 13:28 - CONSULTS/PCP/HOSPITALIST Notification #1 *Consult/PCP/Hospitalist*: Dr. Aguero Time Discussed: 14:35 Consult Disposition: Admit (at [facility]) Departure - Departure Date of Disposition Decision: 01/10/19 Time of Disposition Decision: 15:36 DIAGNOSIS: Thin blood Anemia Qualifiers: Anemia type: unspecified type Qualified Code(s): D64.9 - Anemia, unspecified GI bleed Qualifiers: GI bleed type/associated pathology: unspecified gastrointestinal hemorrhage type Qualified Code(s): K92.2 - Gastrointestinal hemorrhage, unspecified Disposition: ADMITTED INPATIENT 09 Certified Medical Emergency: Emergent Condition: Stable Additional Freetext Instructions: ED Follow Up Instructions: You have been treated by a care provider in the Emergency Department. These instructions are being provided to you so you can have an understanding of how to care for yourself upon discharge. Upon discharge from the Emergency Department, you are responsible for making arrangements for follow-up care by a physician of your choice. Take all prescribed medications as directed. Return to the Emergency Department immediately for any new or worsening symptoms. You may call the Physician Referral phone number at [phone] to obtain a list of Physicians who are taking new patients. Referrals and Follow-Ups: Velasquez Blount MD [Primary Care Provider] - - Critical Care Note This patient required my direct & personal management of CC.: Yes Total Time (mins): 36 Critical Care Statement: This patient required my direct personal management to treat or rule out processes, the absence of which, could potentiallly result in sudden, clinically significant life or limb threatening deterioration. Attestation - Physician/ SAULO Attestation Patient care was provided by Advanced Practice Provider:: No The physician spent face to face time with patient:: Yes Advanced Practice Provider documentation review:: Supervising physician onsite and consulted in the evaluation and care of this patient. The physician did have a face to face encounter with the patient. This chart was documented by the indicated scribe, (Maya Martinez, Sarita) and accurately reflects the services I performed and decisions made by me, Yovanny Sanches MD, as attested by the provider's signature.
== END 2019-01-13 13:20 | disposition home health service (06) | DRG 813 ==
LOC: P.ED 11:55 → ICU 16:44 → 3N 01-11 11:33
PROVIDERS: ATTEND Internal Medicine
CPT/HCPCS: 36430; 76700; 80053; 80069; 80074; 82270; 82607; 82728; 82746; 83540; 83550; 83735; 84443; 84466; 85014; 85018; 85025; 85045; 85610; 85730; 86850; 86900; 86901; 86920; 96365; 96372; 99285; A9270; C9113; J3430; J7030; P9016; P9017; S0164